=== PATIENT | female | born 1985 | race African-American/Black ===

== ENCOUNTER → 2020-05-05 08:41 | Outpatient (BNVA) | payer OTHER, SELFPAY | PROVIDERS: PCP Physician Assistant Medical; Referring Provider Physician Assistant Medical; Visit Provider Physician Assistant | DX: Z76.89 Persons encountering health services in other specified circumstances (principal) ==

== ENCOUNTER → 2020-05-08 08:11 | Outpatient (BNVA) | payer OTHER, SELFPAY | PROVIDERS: PCP Physician Assistant Medical; Referring Provider Physician Assistant Medical; Visit Provider Surgery | DX: Z76.89 Persons encountering health services in other specified circumstances (principal) ==

== ENCOUNTER → 2020-05-16 09:11 | Outpatient (BNVA) | payer OTHER, SELFPAY | PROVIDERS: PCP Physician Assistant Medical; Visit Provider Dietitian, Registered | DX: Z76.89 Persons encountering health services in other specified circumstances (principal) ==

== ENCOUNTER → 2020-05-19 08:44 | Outpatient (BNVA) | payer OTHER, SELFPAY | PROVIDERS: PCP Physician Assistant Medical; Referring Provider Physician Assistant Medical; Visit Provider Physician Assistant | DX: Z76.89 Persons encountering health services in other specified circumstances (principal) ==

== ENCOUNTER 2020-05-19 16:56 | Outpatient (REF) | payer OTHER, SELFPAY ==
[2020-05-20 12:01] LABS: H Pylori Breath Test NOT DETECTED (NOT DETECTED)
== END 2020-05-19 16:57 | disposition home or self-care (01) ==
LOC: HO.LNP 16:56
PROVIDERS: Visit Provider Physician Assistant
DX: Z01.818 Encounter for other preprocedural examination (principal)
CPT/HCPCS: 83013

== ENCOUNTER → 2020-05-31 07:38 | Outpatient (BNVA) | payer OTHER, SELFPAY | PROVIDERS: PCP Physician Assistant Medical; Visit Provider Surgery | DX: Z76.89 Persons encountering health services in other specified circumstances (principal) ==

== ENCOUNTER 2020-06-01 09:55 | Outpatient (REF) | payer OTHER, SELFPAY ==
--- NOTE | 2020-06-01 | FL_ITS ---
EXAMINATION: XR GI SERIES CLINICAL INFORMATION: Morbid obesity due to excess calories COMPARISON: None TECHNIQUE: Fluoroscopic assessment of the upper GI tract was performed in various upright and supine/prone obliquities utilizing thin and thick high density barium contrast material and effervescent granules. FINDINGS: The esophagus was normal in course, caliber, and contour. There was normal distensibility with no fixed segment of narrowing. No focal mucosal abnormality was identified. No significant esophageal dysmotility was observed. Contrast passed freely across the gastroesophageal junction into the stomach. No significant hiatal hernia. There was normal distensibility of the stomach with no focal abnormality identified. There was prompt gastric emptying into the duodenum which demonstrated a normal appearance. No gastroesophageal reflux was observed. FLUOROSCOPY TIME: 1.1 minute DOSE AREA PRODUCT: 31.306 Gy-cm2 (landis-centimeter squared) FL/FL upper GI series IMPRESSION: Normal upper GI examination.
--- NOTE | 2020-06-01 10:03 | US_ITS ---
EXAMINATION: US COMPLETE ABDOMEN WITH LIVER ELASTOGRAPHY CLINICAL INFORMATION: Morbid obesity due to excess calories COMPARISON: None. TECHNIQUE: Real-time imaging of the abdominal viscera. Noninvasive ultrasound liver fibrosis assessment is performed using Toni ElastPQ point quantification shear wave elastography (pSWE) with a 5 MHz transducer. Multiple elastography samples are obtained. FINDINGS: PANCREAS: Not well seen secondary to bowel gas. ABDOMINAL AORTA: The proximal, middle, and distal aortic segments are normal in caliber. INFERIOR VENA CAVA: Visualized portions are normal. LIVER: The liver demonstrates normal size and Contour with increased echogenicity. No focal lesion or intrahepatic biliary duct dilatation. The right lobe measures 13 cm in length. The left lobe measures 10.1 cm in length. Hepatopedal flow of the main portal vein. Shear wave elastography provides a median stiffness of 1.24 m/s (reference: normal median stiffness is 0.81 - 1.22 m/s). The IQR/median stiffness to assess sampling precision is 0.1 (reference: optimal IQR/median stiffness is under 0.3). GALLBLADDER: Surgically absent. COMMON BILE DUCT: Prominent in caliber measuring 0.9 cm in diameter. RIGHT KIDNEY: Normal. No hydronephrosis. No renal calculi or focal parenchymal lesions. The kidney measures 10.8 cm in maximum dimension. LEFT KIDNEY: Normal. No hydronephrosis. No renal calculi or focal parenchymal lesions. The kidney measures 10.4 cm in maximum dimension. SPLEEN: Normal. The spleen measures 9.9 cm in maximum dimension. FREE FLUID: None. US/US abdomen comp w elastography IMPRESSION: 1. Hepatic steatosis. 2. Elastography: Liver elastography measurements are consistent with a minimal risk for clinically significant liver fibrosis (METAVIR Stage F0-F1).
--- NOTE | 2020-06-01 10:30 | XR_ITS ---
EXAMINATION: XR CHEST CLINICAL INFORMATION: Morbid obesity due to excess calories COMPARISON: None TECHNIQUE: 2 views of the chest were obtained. FINDINGS: The lungs are well expanded. There is no focal consolidation, edema, or effusion. No pneumothorax. The cardiomediastinal silhouette is within normal limits. No acute osseous abnormality. XR/XR chest 2V IMPRESSION: Clear lungs.
--- NOTE | 2020-06-01 11:38 | ECG_ITS ---
Test Reason : MORBID OBESITY Blood Pressure : / mmHG Vent. Rate : 071 BPM Atrial Rate : 071 BPM P-R Int : 142 ms QRS Dur : 074 ms QT Int : 400 ms P-R-T Axes : 011 042 037 degrees QTc Int : 434 ms Normal sinus rhythm Normal ECG No previous ECGs available Referred By: Juan Antonio Gates Electronically Signed By:VERA MONTENEGRO MD
[2020-06-01 12:33] LABS: MANUAL DIFF FLAG NO
[2020-06-01 12:45] LABS: Basophils Percent Auto 0.6 % (0-2); Eosinophils Absolute Auto 0.1 X10*3/uL (0.0-0.4); Eosinophils Percent Auto 1.4 % (0-4); Hematocrit 37.8 % (37-47); Hemoglobin 12.2 g/dl (12.0-16.0); Imm Gran Abs Auto 0.02 X10*3/uL (0.00-0.03); Imm Gran Pct Auto 0.3 % (0.0-0.4); Lymphocytes Absolute Auto 2.1 X10*3/uL (1.2-4.9); Lymphocytes Percent Auto 31.2 % (20-40); Mean Corpuscular HGB Conc 32.3 g/dl (31.0-35.0); Mean Corpuscular Hemoglobin 25.7 pg (27.0-33.0); Mean Corpuscular Volume 79.6 fL (80-98); Mean Platelet Volume 11.8 fL (9.4-12.3); Monocytes Absolute Auto 0.4 X10*3/uL (0.1-1.2); Monocytes Percent Auto 5.9 % (2-11); Neutrophils Percent Auto 60.6 % (45-73); Platelet Count 276 X10*3/uL (160-400); Red Blood Count 4.75 X10*6/uL (4.20-5.50); Red Cell Distribution Width 13.8 % (11.0-16.0); White Blood Count 6.6 X10*3/uL (4.8-10.8)
[2020-06-01 13:04] LABS: Estimated Average Glucose 108 mg/dL; Hemoglobin A1c % 5.4 %
[2020-06-01 13:32] LABS: Alanine Aminotransferase 18 U/L (0-31); Alkaline Phosphatase 64 U/L (39-117); Anion Gap 15 (12-20); Aspartate Amino Transferase 17 U/L (5-31); Bilirubin Total 0.3 mg/dL (0.0-1.0); Blood Urea Nitrogen 11 mg/dL (9-16); Calcium 8.8 mg/dL (8.4-10.2); Carbon Dioxide 25 mmol/L (22-29); Chloride 102 mmol/L (96-108); Cholesterol 151 mg/dL; Estimated Glomerular Filt Rate > 60; Glucose Random 82 mg/dL (60-115); HDL Cholesterol 55 mg/dL; LDL Cholesterol Calculated 86 mg/dl; Potassium 4.4 mmol/l (3.3-5.1); Sodium 138 mmol/L (135-145); Triglycerides 51 mg/dL
[2020-06-01 13:42] LABS: Ferritin 130 ng/mL (10-122); TSH reflex Free T4 1.56 mIU/mL (0.32-4.0)
[2020-06-01 14:06] LABS: Folate 13.9 ng/mL (> or = 4.0); Vitamin B12 1200 pg/mL (200-900)
[2020-06-03 03:47] LABS: Insulin Level Total 6.8 uIU/mL
[2020-06-03 16:07] LABS: Zinc 64 mcg/dL (60-130)
[2020-06-06 12:22] LABS: Vitamin B1 10 nmol/L (8-30)
[2020-06-08 17:47] LABS: Vitamin A 24 mcg/dL (38-98)
== END 2020-06-01 09:56 | disposition home or self-care (01) ==
LOC: HO.US 09:55
PROVIDERS: PCP Physician Assistant Medical; Visit Provider Surgery
DX: Z01.818 Encounter for other preprocedural examination (principal); E66.01 Morbid (severe) obesity due to excess calories; K21.9 Gastro-esophageal reflux disease without esophagitis
CPT/HCPCS: 36415; 71046; 74240; 76705; 76981; 80053; 80061; 82607; 82728; 82746; 83036; 83525; 84425; 84443; 84590; 84630; 85025; 86140; 93005

== ENCOUNTER → 2020-06-13 08:50 | Outpatient (BNVA) | payer OTHER, SELFPAY | PROVIDERS: PCP Physician Assistant Medical; Referring Provider Physician Assistant Medical; Visit Provider Dietitian, Registered | DX: Z76.89 Persons encountering health services in other specified circumstances (principal) ==

== ENCOUNTER → 2020-06-19 08:03 | Outpatient (BNVA) | payer OTHER, SELFPAY | PROVIDERS: PCP Physician Assistant Medical; Referring Provider Physician Assistant Medical; Visit Provider Surgery | DX: Z76.89 Persons encountering health services in other specified circumstances (principal) ==

== ENCOUNTER → 2020-06-27 08:12 | Outpatient (BNVA) | payer OTHER, SELFPAY | PROVIDERS: PCP Physician Assistant Medical; Referring Provider Physician Assistant Medical; Visit Provider Dietitian, Registered | DX: E66.01 Morbid (severe) obesity due to excess calories (principal); Z76.89 Persons encountering health services in other specified circumstances ==

== ENCOUNTER → 2020-07-19 07:50 | Outpatient (BNVA) | payer OTHER, SELFPAY | PROVIDERS: PCP Physician Assistant Medical; Visit Provider Surgery | DX: Z76.89 Persons encountering health services in other specified circumstances (principal) ==

== ENCOUNTER → 2020-08-04 07:24 | Outpatient (BNVA) | payer OTHER, SELFPAY | PROVIDERS: PCP Physician Assistant Medical; Visit Provider Surgery ==

== ENCOUNTER → 2020-08-07 12:25 | Outpatient (BNVA) | payer OTHER, SELFPAY | PROVIDERS: PCP Physician Assistant Medical; Visit Provider Physician Assistant ==

== ENCOUNTER → 2020-08-18 14:10 | Outpatient (BNVA) | payer OTHER, SELFPAY | PROVIDERS: PCP Physician Assistant; Visit Provider Physician Assistant ==

== ENCOUNTER → 2020-08-21 08:21 | Outpatient (BNVA) | payer OTHER, SELFPAY | PROVIDERS: PCP Physician Assistant; Visit Provider Surgery ==

== ENCOUNTER 2020-08-22 06:07 | Outpatient (REF) | payer OTHER, SELFPAY ==
[2020-08-22 07:13] LABS: MANUAL DIFF FLAG NO
[2020-08-22 07:19] LABS: Basophils Percent Auto 0.4 % (0-2); Eosinophils Absolute Auto 0.1 X10*3/uL (0.0-0.4); Eosinophils Percent Auto 1.2 % (0-4); Hematocrit 34.8 % (37-47); Hemoglobin 11.3 g/dl (12.0-16.0); Imm Gran Abs Auto 0.02 X10*3/uL (0.00-0.03); Imm Gran Pct Auto 0.3 % (0.0-0.4); Lymphocytes Percent Auto 29.6 % (20-40); Mean Corpuscular HGB Conc 32.5 g/dl (31.0-35.0); Mean Corpuscular Hemoglobin 25.3 pg (27.0-33.0); Mean Platelet Volume 10.5 fL (9.4-12.3); Monocytes Absolute Auto 0.3 X10*3/uL (0.1-1.2); Neutrophils Absolute Auto 4.3 X10*3/uL (2.0-8.3); Neutrophils Percent Auto 63.5 % (45-73); Platelet Count 306 X10*3/uL (160-400); Red Blood Count 4.46 X10*6/uL (4.20-5.50); Red Cell Distribution Width 14.2 % (11.0-16.0); White Blood Count 6.8 X10*3/uL (4.8-10.8)
[2020-08-22 07:28] LABS: INTERNATIONAL NORM RATIO 1.1 (0.9-1.1); Prothrombin Time 13.1 SEC (10.8-13.0)
[2020-08-22 07:49] LABS: Alanine Aminotransferase 11 U/L (0-31); Albumin Level 3.9 g/dL (3.5-5.0); Alkaline Phosphatase 61 U/L (39-117); Anion Gap 11 (12-20); Aspartate Amino Transferase 11 U/L (5-31); Bilirubin Total 0.4 mg/dL (0.0-1.0); Blood Urea Nitrogen 14 mg/dL (9-16); C Reactive Protein 1.91 mg/dL (< or = 0.50); Calcium 8.7 mg/dL (8.4-10.2); Carbon Dioxide 26 mmol/L (22-29); Chloride 105 mmol/L (96-108); Cholesterol 154 mg/dL; Estimated Glomerular Filt Rate > 60; Glucose Random 102 mg/dL (60-115); HDL Cholesterol 46 mg/dL; LDL Cholesterol Calculated 96 mg/dl; Potassium 4.3 mmol/L (3.3-5.1); Sodium 138 mmol/L (135-145); Total Protein 7.4 g/dL (6.5-8.0); Triglycerides 61 mg/dL
[2020-08-22 07:50] LABS: Estimated Average Glucose 100 mg/dL; Hemoglobin A1c % 5.1 %
[2020-08-22 08:12] LABS: Ferritin 203 ng/mL (10-122); TSH reflex Free T4 2.27 uIU/mL (0.32-4.0); Vitamin D 25-OH Total 27.1 ng/mL (>30)
[2020-08-22 09:18] LABS: Vitamin B12 1186 pg/mL (200-900)
[2020-08-23 10:42] LABS: Calcium (PTHI) 8.9 mg/dL (8.6-10.2); PTHI 28 pg/mL (14-64)
[2020-08-23 17:52] LABS: Insulin Level Total 15.1 uIU/mL
[2020-08-24 23:32] LABS: Zinc 59 mcg/dL (60-130)
[2020-08-26 11:51] LABS: Vitamin B1 <6 nmol/L (8-30)
[2020-08-26 16:37] LABS: Vitamin A 22 mcg/dL (38-98)
== END 2020-08-22 06:08 | disposition home or self-care (01) ==
LOC: HO.LAB 06:07
PROVIDERS: Visit Provider Surgery
DX: E66.01 Morbid (severe) obesity due to excess calories (principal)
CPT/HCPCS: 36415; 80053; 80061; 82306; 82607; 82728; 83036; 83525; 83970; 84425; 84443; 84590; 84630; 85025; 85610; 85730; 86140

== ENCOUNTER 2020-08-31 17:07 | Inpatient (IN) | payer OTHER, SELFPAY ==
[2020-08-25 13:57] VITALS: BMI 43.0
--- NOTE | 2020-08-29 14:20 | P.CONAN_ITS ---
Documented by User: Deidra Willams 08/29/20 14:24 HPI - Anesthesia Eval Consult details Narrative: 35yo F for Gastrectomy Sleeve PMFSH Active Problems Active Problems: All Active Problems (Updated 06/19/20 @ 13:03 by Juan Antonio Gates MD) Preprocedural examination (Acute) Vitamin A deficiency (Acute) Depression (Acute) Morbid obesity (Acute) Past Medical History Medical History Depression Obesity Vitamin A deficiency Family History Family History Mother Vision decreased Hypertension Father Diabetes Brother No problems noted. Sister Hypertension Sister No problems noted. Surgical History Surgical History History of partial hysterectomy Hx of cholecystectomy Morbid obesity Social History Social History Alcohol intake: current Alcohol intake frequency: holidays/special occasions only Smoking Status: Never smoker Use of substances other than those prescribed or required for medical reasons: No Meds Allergies Allergy/AdvReac Type Severity Reaction Status Date / Time No Known Allergies Allergy Verified 08/25/20 13:55 Home Medications Medication Instructions Recorded Confirmed Last Taken Type bupropion HCl 300 mg 24 hr tablet, mg PO 05/08/20 08/21/20 Unknown History extended release cholecalciferol (vitamin D3) 1,250 PO 05/08/20 08/21/20 Unknown History mcg (50,000 unit) capsule nitrofurantoin monohyd/m-cryst 1 cap PO BID 08/25/20 08/25/20 08/25/20 08:00 History Exam Exam Date and Time: August 29, 2020 1420 Height,Weight and Vital Signs: Height 5 ft 4 in Weight 113.852 kg Pertinent Lab Results Pertinent Lab Results: Laboratory Tests 08/22/20 06:39 Blood Type O Positive Antibody Screen NEGATIVE Laboratory Tests 08/22/20 08/22/20 08/22/20 06:18 Unknown Unknown WBC 6.8 Hgb 11.3 L Hct 34.8 L Plt Count 306 PT 13.1 H INR 1.1 APTT 41.0 H Sodium 138 Potassium 4.3 Chloride 105 Carbon Dioxide 26 Anion Gap 11 L BUN 14 Creatinine 0.84 Estimated GFR > 60 Hemoglobin A1c % Total Bilirubin 0.4 AST 11 ALT 11 Alkaline Phosphatase 61 C-Reactive Protein 1.91 H Total Protein 7.4 Albumin 3.9 08/22/20 Unknown WBC Hgb Hct Plt Count PT INR APTT Sodium Potassium Chloride Carbon Dioxide Anion Gap BUN Creatinine Estimated GFR Hemoglobin A1c % 5.1 Total Bilirubin AST ALT Alkaline Phosphatase C-Reactive Protein Total Protein Albumin Narrative Narrative: EKG 05/2020 Normal sinus rhythm Normal ECG No previous ECGs available Assessment and Plan Assessment Anesthesia Assessment: Chart Reviewed Documented by User: Cristina Segovia 08/31/20 14:48 [facility] Past Medical History Medical History Depression Obesity Vitamin A deficiency Family History Family History Mother Vision decreased Hypertension Father Diabetes Brother No problems noted. Sister Hypertension Sister No problems noted. Surgical History Surgical History History of partial hysterectomy Hx of cholecystectomy Morbid obesity Social History Social History Alcohol intake: current Alcohol intake frequency: holidays/special occasions only Smoking Status: Never smoker Use of substances other than those prescribed or required for medical reasons: No Meds Allergies Allergy/AdvReac Type Severity Reaction Status Date / Time No Known Allergies Allergy Verified 08/25/20 13:55 Home Medications Medication Instructions Recorded Confirmed Last Taken Type bupropion HCl 300 mg 24 hr tablet, mg PO 05/08/20 08/21/20 Unknown History extended release cholecalciferol (vitamin D3) 1,250 PO 05/08/20 08/21/20 Unknown History mcg (50,000 unit) capsule nitrofurantoin monohyd/m-cryst 1 cap PO BID 08/25/20 08/25/20 08/25/20 08:00 History Exam Airway Mallampati Class: II TM Dist: >3cm Neck ROM: Full Loose/Missing/Broken Teeth: No Heart: RRR Lungs: CTA Assessment and Plan Assessment Anesthesia Assessment: Anesthesia Plan Discussed and Chart Reviewed Final Anesthetic Review NPO: Yes ASA Class: II Final Preanesthetic Review: Meds/Allgs Chart Reviewed, Consent Obtained/Reviewed and Anes Risks/Benef Reviewed Patient Risk: Intermediate Procedure Risk: Intermediate Anesthetic Plan Anesthetic Plan: GA Disposition: Standard PACU
--- NOTE | 2020-08-30 21:04 | MHC.SHP ---
Pre-Procedural Eval Section A The patient is an INPATIENT: Yes The History & Physical has been completed within 30 days and I have reviewed it.: Yes Section B Chief Complaint: obesity Details of Present Illness: obesity Relevant Family History (Specify if Yes): No Relevant Social History: None Present Medications: see Short Stay Collaborative assessment Medical History: No relevant PMH History of Previous Operations: No relevant previous surgery Allergies: Allergies Allergy/AdvReac Type Severity Reaction Status Date / Time No Known Allergies Allergy Verified 08/25/20 13:55 Review of Systems Sugical H&P ROS: Negative: Constitution, Cardiovascular, Respiratory, Neurological, Psychiatric, Hem-Onc, Allergic/Immunologic, Gastrointestinal, Genitourinary, Musculoskeletal, Integumentary, Endocrine and Eyes/Ears/Nose/Throat Exam Surgical H&P Exam: Normal: HEENT, Normal: Heart, Normal: Lungs, Normal: Extremities, Normal: Abdomen, Normal: Skin and Normal: Neurological Plan Diagnosis/Plan: Unchanged I have reviewed the history and physical and performed a pertinent physical examination on my patient. No changes have occurred unless specified.
[2020-08-31] VITALS (16 sets, daily range): BP systolic 125–159; BP diastolic 73–99; PULSE 72–88; RESP 12–20; TEMP 36–36.7; O2SAT 93–100
[2020-08-31 13:17] LABS: UPreg QC Valid YES; Urine Pregnancy NEGATIVE (NEGATIVE)
[2020-08-31 13:33] LABS: COVID-19 Test Negative (Negative)
--- NOTE | 2020-08-31 14:05 | PC.NURSE ---
uaamita to obtain an iv. heated bilateral arms and attempted twice. none seen visually. aneshtesia aware. to try in or.
--- NOTE | 2020-08-31 17:14 | P.DS_ITS ---
DS: Providers Provider Date of Service: 09/04/20 Date of admission: 08/31/20 17:07 Primary care physician: Unknown Physician DS: Medications Discharge Medications Home Medications: Home Medications Medication Instructions Recorded Confirmed bupropion HCl 300 mg 24 hr tablet, mg PO 05/08/20 08/21/20 extended release cholecalciferol (vitamin D3) 1,250 PO 05/08/20 08/21/20 mcg (50,000 unit) capsule nitrofurantoin monohyd/m-cryst 1 cap PO BID 08/25/20 08/25/20 Previous Rx's Medication Instructions Recorded vitamin A palmitate 15,000 unit 10,000 unit PO .once a day #30 tab 06/19/20 tablet ondansetron HCl 4 mg tablet 4 mg PO DAILY #14 tab 08/21/20 pantoprazole 40 mg tablet,delayed 40 mg PO DAILY #30 tab 08/21/20 release polyethylene glycol 3350 17 gram 17 g PO DAILY #14 ea 08/21/20 oral powder packet sucralfate 100 mg/mL oral 10 ml PO BID #420 ml 08/21/20 suspension DS: Summary Time Spent with Patient Time attestation: ADMITTING DIAGNOSIS: morbid obesity, depression DISCHARGE DIAGNOSIS: same, s/p laparoscopic sleeve gastrectomy PAST SURGICAL HISTORY: hysterectomy, l;ap cholecystectomy PROCEDURE: upper endoscopy, laparoscopic sleeve gastrectomy DISCHARGE SUMMARY: History of Present Illness: The patient is a 35 year-old woman with a BMI of 46 kg/m2 and associated co- morbidities as described above. The patient had extensive work-up,lost 31.6 lbs preoperatively and was electively scheduled for laparoscopic, possible open sleeve gastrectomy and gastropexy. Risks and complications of the surgery were discussed with the patient in advance, particularly the possibility of , pulmonary embolism, anastomotic leak, bleeding, bowel injury, GERD, cardiac, renal or pulmonary complications. The patient understood all the risks and was in agreement with the surgical plan. Hospital Course: The patient underwent an uneventful laparoscopic sleeve gastrectomy with gastropexy the day of admission. Postoperatively, the patient was transferred to the surgical floor. The patient was on IV Acetaminophen and IV dilaudid for pain control. Patient was started on bariatric phase 1 diet POD #0. On postoperative day one, the patient was feeling well without nausea, vomiting, fevers, or tachycardia. The patient had some mild incisional pain. The abdomen was soft. On the morning of postoperative day one, the patient was continued on 1 ounce of water or ice every half hour. During the first day, the patient did fairly well, having some incisional pain, but able to ambulate adequately and to tolerate liquids well. Since the patient is doing well, we decided that the patient was ready to be discharged. The patient was given instructions to follow-up with me next week and to call my office for any fever over 101, persistent abdominal pain, nausea, vomiting, GERD, symptoms of DVT such as calf tenderness, or leg swelling, or pulmonary embolism such as chest pain or shortness of breath. The patient was also instructed to drink 40-60 ounces of liquids per day using the 1-ounce cups. The patient was given prescription for Tylenol for pain, Zofran prn for nausea, and pantoprazole and carafate. The patient was encouraged to ambulate and use the incentive spirometer. The patient was allowed to shower, but no baths, and encouraged to stay active at home. All of these instructions were given to the patient personally. All questions were answered and the patient understood all instructions, the instructions were also given to the patient in print. Total time spent providing and/or coordinating discharge services: Discharge coordination time: Less than 30 minutes Physical Exam Vital Signs: Vital Signs: Last Vital Signs Temp 87.3 F L 08/31/20 16:50 Pulse 84 08/31/20 17:05 Resp 16 08/31/20 17:05 BP 155/89 H 08/31/20 17:05 Pulse Ox 100 08/31/20 17:05 Body Mass Index 43.0 DS: Data Data Completed and Pending Pending studies at discharge: Pending at discharge 08/31/20 16:20 Surgical [PTH] Routine Labs on day of discharge: Laboratory Results - last 24 hr 08/31/20 08/31/20 13:00 13:00 Urine Test NEGATIVE COVID-19 (ADONAY) Negative COVID-19 Clin Com See Note Discharge Plan Discharge Anticipated Discharge Date/Time: 09/01/20 11:12 Patient Disposition: Home, Self-Care Referrals: Physician,Unknown [Primary Care Provider] - Discharge Medications: Continued nitrofurantoin monohyd/m-cryst 100 mg capsule 1 cap PO BID RF: 0 bupropion HCl 300 mg tablet extended release 24 hr PO RF: 0 pantoprazole 40 mg tablet,delayed release (DR/EC) 40 mg PO DAILY Qty: 30 RF: 2 sucralfate 100 mg/mL suspension 10 ml PO BID Qty: 420 RF: 2 ondansetron HCl [Zofran] 4 mg tablet 4 mg PO DAILY Qty: 14 RF: 0 Discontinued cholecalciferol (vitamin D3) 1,250 mcg (50,000 unit) capsule PO RF: 0 vitamin A palmitate 15,000 unit tablet 10,000 unit PO .once a day Qty: 30 RF: 2 polyethylene glycol 3350 [Miralax] 17 gram powder in packet 17 g PO DAILY Qty: 14 RF: 0 Discharge Orders: Discharge Order (Routine); Ordered 09/01/20 Ordered By: Juan Antonio Gates Diet: other Activity on Discharge: No heavy lifting Stand Alone Forms: Patient Portal Discharge page Activity Restrictions/Additional Instructions: No tub baths, sex or returning to work until discussed at first post op appointment. No exercise, alcohol, tobacco or illegal drug use. Continue to use incentive spirometer hourly while awake. Walk in home for 5- 10 minutes every 2 hours during the first week. Continue phase 1 diet today and start phase 2 diet tomorrow morning. Follow all instructions in the bariatric handbook and call with any questions. Care Plan Goals: weight loss Health Concerns: morbid obesity Plan of Treatment: see discharge instructions Discharge Date/Time: 09/01/20 14:15
[2020-08-31] MEDS: fentaNYL citrate/PF 100 MCG/2 ML VIAL 25 MCG IVPUSH ×4 (17:40→18:20)
[2020-08-31 18:18] LABS: Hematocrit 34.6 % (37-47); Hemoglobin 11.1 g/dl (12.0-16.0)
[2020-08-31 18:46] LABS: Anion Gap 14 (12-20); Blood Urea Nitrogen 8 mg/dL (9-16); Calcium 8.4 mg/dL (8.4-10.2); Carbon Dioxide 24 mmol/L (22-29); Chloride 101 mmol/L (96-108); Creatinine Clr Calc Pharmacy 121.4; Estimated Glomerular Filt Rate > 60; Glucose Random 126 mg/dL (60-115); Sodium 135 mmol/L (135-145)
--- NOTE | 2020-08-31 18:54 | PM.OP ---
Brief Operative Note Date of Service: 08/31/20 Pre-op diagnosis: Morbid obesity with comorbidities (see below) Post-op diagnosis: other (& congenital abdominal adhesions) Procedure: INITIAL PATIENT BMI ON PRESENTATION AT OUR OFFICE: 47 kg/m2 LAST BMI BEFORE SURGERY: 41.9 kg/m2 COMORBIDITIES:liver steatosis, depression The patient participated in an intensive weekly lifestyle intervention and exercise program during which the patient has lost between the initial office visit and the last preoperative visit 31.6 lbs, or 11.16% of initial actual body weight. The patient met the BMI-criteria for bariatric surgery based on the BMI on initial presentation. The patient should not be penalized for achieving such weight loss because it is not sustainable long-term without surgical intervention and it was achieved in preparation for bariatric surgery under my direction and based on my published research ([email or web address] and [email or web address]) that a 10% preoperative weight loss improves long-term weight loss after surgery and reduces perioperative complications. Insurance carriers such as [facility] have endorsed my recommendations and have included in their policies criteria to include a 10% preoperative weight loss requirement. PROCEDURE: Esophago-gastroscopy, laparoscopic lysis of adhesions, laparoscopic sleeve gastrectomy and laparoscopic gastropexy INDICATIONS: This is a 35 year-old female who was electively scheduled for laparoscopic, possibly open sleeve gastrectomy. The risks and complications of the procedure were discussed with the patient in advance, particularly the possibility of ; pulmonary embolism; staple line leak; bleeding; GERD; cardiac, pulmonary, or renal complications; as well as long-term problems such as insufficient weight loss, vitamin deficiency, strictures, or ulcers. The patient understood all the risks, and was in agreement to proceed with surgery. DESCRIPTION OF PROCEDURE: After informed consent was obtained from the patient, the patient was given preoperative antibiotics, and was transferred to the operating room. After successful induction of general anesthesia, pneumatic compressive devices were placed on both lower extremities. An upper endoscopy was performed next. The oropharynx and esophagus appeared to be within normal limits. There was no diaphragmatic hernia present consistent with the findings of the preoperative upper GI. The stomach was entered. Then after all fluid and air were suctioned and the stomach was fully decompressed, the scope was withdrawn and secured in the mid esophagus. The patient was then prepped and draped in the usual sterile manner, and abdominal access was established at the right upper quadrant with the Garrett technique. A 12 mm blunt port was inserted, and the abdomen was insufflated with CO2 to a pressure of 15 mmHg. Under direct visualization, additional ports were placed, specifically two 5 mm Versi-step ports to the left upper quadrant, and a 5 mm Versi-Step port to the right upper quadrant. 1% lidocained plan was used to infiltrate all port sites as well as all fascia defects. Using the EndoClose suture passer device, we placed a #1 Polysorb tie across the falciform ligament in order to retract it up against the abdominal wall and prevent injury of the ligament with our instruments during the procedure. Following that, the patient was placed in a steep reverse Trendelenburg position. An additional 5 mm port was placed to the right flank for the Mediflex retractor that was used to retract the left lobe of the liver. The gastro-esophageal fat pad was opened with the ultrasonic device (Thunderbeat, Olympus) and the anterior esophagus and hiatus were exposed. The angle of His was opened with the ultrasonic device the fundus of the stomach from any diaphragmatic and splenic attachments. I then opened the gastrocolic ligament between the transverse colon and the greater curvature of the stomach with the ultrasonic device to enter the lesser sac and facilitate the ligation of the short gastric vessels. I started at a mid-point along the greater curvature and using the Thunderbeat, all short gastric vessels were divided all the way to the angle of His until the left maribell was completely dissected at its entirety. I then divided the gastro-colic ligament distally to a distance of about 3-4 cm proximal to the esophagus. There were extensive congenital adhesions between the pancreas and posterior gastric wall. Those were lysed completely with the ultrasonic device. Adhesiolysis took approximately 45 min to complete. The stomach was then divided transversely with three Endo DEEPALI-45 and four DEEPALI-60 articulating purple loads using the Wrapp stapler and loads. Every effort was made that the gastric sleeve had a tubular shape and an even caliber throughout. Once the sleeve resection was completed, the staple line of the gastric sleeve was reinforced with Hemoclips. The resected stomach was retrieved without difficulty from the Garrett port. A gastropexy was then performed in order to prevent postoperative GERD and partial gastric volvulus. Several interrupted 2.0 Surgidac sutures were placed between the sleeve's staple line and the previously divided greater omentum and gastro-colic ligament using the Endo-Stitch device. An upper endoscopy was performed. There was no narrowing at the GE junction. The scope was easily advanced all the way to the pylorus which was clearly visualized. There was no narrowing anywhere and the sleeve's caliber was even throughout. The sleeve's staple line was inspected and there was no evidence of ischemia, bleeding or dehiscence. At that point the gastroscope was withdrawn from the patient?s mouth while we were decompressing the bowel and the stomach from any remaining air. I looked into the lesser sac to see how the sleeve was situating and it was situating well. There was no bleeding from the staple line, spleen, or short gastric vessels. The Mediflex retractor was removed, and the undersurface of the liver was inspected and there was no bleeding. The patient was placed in supine position. I closed the fascial defect of the 12 mm port site with a figure of eight #1 Polysorb suture. Then 100 cc 0.25 % Marcaine plain with 10 mg of Dexamethasone were used to infiltrate the fascial closure as well as all skin incisions. At this point, the abdomen was deflated, all ports were removed under direct vision, and no bleeding was noted from any of the port sites. The skin incisions were irrigated with saline and were closed with 4-0 absorbable monofilament sutures. Steri-Strips and OpSites were used to cover all incisions. The patient was extubated and was transferred in stable condition to the recovery room for further care. I was present and performed all vázquez parts of the procedure. Ms. Willisson was the certified first assistant. There were no residents to assist with this case. Dion Gates MD, PhD, FACS Surgeon: Juan Antonio Gates MD Anesthesia: GETA, local and other (TAP block) Automatic Beading Lathe Operator: Jessica Zendejas Estimated blood loss (mL): 10 IV fluids (mL): 3,000 Urine output (mL): 0 (No Almeida to record) Pathology: other (Stomach) Condition: stable
--- NOTE | 2020-08-31 19:00 | PM.PNGS ---
Subjective Subjective Date of Service: 09/01/20 Interval history: Patient had incisional pain requiring IV Tylenol and IV Dilaudid. Was able to ambulate and use the incentive spirometer. Physical Exam Vital Signs: Vital Signs: Last Vital Signs Temp 98.1 F 08/31/20 17:25 Pulse 78 08/31/20 18:25 Resp 16 08/31/20 18:25 BP 136/91 H 08/31/20 18:25 Pulse Ox 100 08/31/20 18:25 Body Mass Index 43.0 GI: Inspection: Yes normal to inspection, Yes incision (clean, dry and intact) and Yes obesity Extrem: Right lower extremity: normal to inspection (no calf tenderness) Left lower extremity: normal to inspection (no calf tenderness) Progress Note: A&P Assessment and plan (1) Morbid obesity: Status: Acute (2) Depression: Status: Acute (3) Steatosis, liver: Status: Acute (4) Congenital intra-abdominal adhesions: Status: Acute (5) S/P laparoscopic sleeve gastrectomy: Status: Acute Assessment and Plan: 35 year old jose manuel was admitted 08/31/2020 with morbid obesity and comorbidities. Problem 1: s/p laparoscopic sleeve gastrectomy, gastropexy and lysis of adhesions Status: Doing well Plan: Check am labs, If OK, will continue phase 1 bariatric diet and discharge later today. Fall Risk Details Current Medications: Current Medications Generic Name Dose Route Start Last Admin Trade Name Freq PRN Reason Stop Dose Admin Fentanyl 50 mcg 08/31/20 14:49 Fentanyl Citrate/Pf 100 Mcg/2 Ml Vial IVPUSH Q5M PRN Pain, Severe (Pain Scale 7-10) Hydromorphone HCl 0.25 mg 08/31/20 14:49 Hydromorphone Hcl 0.5 Mg/0.5 Ml Syringe IVPUSH Q5M PRN Pain, Severe (Pain Scale 7-10) Lactated Ringer's 1,000 mls @ 100 mls/hr 08/31/20 13:15 Lr IVCONT .Q10H RAFIA Promethazine HCl 6.25 mg/ 50.25 mls @ 201 mls/hr 08/31/20 14:49 Sodium Chloride IV ONCE PRN Nausea and Vomiting Ondansetron HCl 4 mg 08/31/20 14:49 Ondansetron Hcl 4 Mg/2 Ml Vial IVPUSH ONCE PRN Nausea and Vomiting Time Spent With Patient Time: Total time spent is greater than 50% in coordination of care (as documented) at patient's floor/unit and/or counseling patient: Time with patient: less than 15 minutes
[2020-08-31] MEDS: Lactated Ringers 1,000 ML 125 ML IVCONT (19:39)
[2020-08-31] MEDS: ceFAZolin Sodium/Dextrose,Iso 2 GM/50 ML PIGGYBACK IV (20:54)
[2020-08-31] MEDS: Famotidine/PF 20 MG/2 ML VIAL IVPUSH (20:54)
[2020-08-31] MEDS: ondansetron HCL 4 MG/2 ML VIAL IVPUSH (20:54)
[2020-08-31] MEDS: Nitrofurantoin Monohyd/M-Cryst 100 MG CAPSULE PO (20:55)
[2020-08-31] MEDS: 0.9 % Sodium Chloride Flush 3 ML SYRINGE IVFLUSH (20:55)
[2020-09-01] VITALS: BP 134/87; PULSE 72; RESP 20; TEMP 36.6; O2SAT 99
[2020-09-01] MEDS: Metoclopramide HCl 10 MG/2 ML VIAL IVPUSH (00:39)
--- NOTE | 2020-09-01 00:48 | PC.NURSE ---
pt vomited a small amout at 0035, IV reglan given at 0039 with good effect.
[2020-09-01] MEDS: Lactated Ringers 1,000 ML 125 ML IVCONT ×2 (03:36→11:43)
[2020-09-01] MEDS: ondansetron HCL 4 MG/2 ML VIAL IVPUSH (03:36)
[2020-09-01 04:00] VITALS: BP 137/85; PULSE 77; RESP 20; TEMP 36.3; O2SAT 98
[2020-09-01 04:56] LABS: Eosinophils Percent Auto 0.2 % (0-4); Hematocrit 33.3 % (37-47); Imm Gran Abs Auto 0.01 X10*3/uL (0.00-0.03); Imm Gran Pct Auto 0.2 % (0.0-0.4); Lymphocytes Absolute Auto 0.6 X10*3/uL (1.2-4.9); Lymphocytes Percent Auto 10.7 % (20-40); MANUAL DIFF FLAG SCAN; Mean Corpuscular Hemoglobin 25.6 pg (27.0-33.0); Mean Corpuscular Volume 77.6 fL (80-98); Mean Platelet Volume 11.6 fL (9.4-12.3); Monocytes Absolute Auto 0.1 X10*3/uL (0.1-1.2); Monocytes Percent Auto 1.2 % (2-11); Neutrophils Percent Auto 87.7 % (45-73); Platelet Count 239 X10*3/uL (160-400); Red Blood Count 4.29 X10*6/uL (4.20-5.50); Red Cell Distribution Width 14.4 % (11.0-16.0); SCAN SMEAR FLAG 1; White Blood Count 5.7 X10*3/uL (4.8-10.8)
[2020-09-01 05:04] LABS: SLIDE REVIEW VERIFIED
[2020-09-01 07:19] LABS: Anion Gap 14 (12-20); Blood Urea Nitrogen 7 mg/dL (9-16); Calcium 8.2 mg/dL (8.4-10.2); Carbon Dioxide 22 mmol/L (22-29); Chloride 104 mmol/L (96-108); Creatinine Clr Calc Pharmacy 134.9; Estimated Glomerular Filt Rate > 60; Glucose Random 116 mg/dL (60-115); Sodium 136 mmol/L (135-145)
[2020-09-01 08:00] VITALS: BP 146/82; PULSE 83; RESP 18; TEMP 36.8; O2SAT 100
--- NOTE | 2020-09-01 08:59 | HO.POSTANES ---
Post Anesthesia Evaluation Post Anesthesia Evaluation Vital Signs: Vital Signs Temp Pulse Resp BP Pulse Ox 09/01/20 08:00 98.3 F 83 18 146/82 H 100 09/01/20 04:00 97.3 F 77 20 137/85 98 09/01/20 00:00 97.8 F 72 20 134/87 99 Anesthesia: General Endotracheal-GETA Mental Status: Awake Pain Control: Satisfactory Nausea/Vomiting: None (Nausea and vomiting yesterday-resolved) Hydration: Adequate Anesthesia-Related Issues: No Anes. Related Issues
--- NOTE | 2020-09-01 09:31 | MHC.CM.PN ---
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 PT REPORTS SHE CANNOT REMEMBER HER PCP FROM [facility] IN [place] AND CM VERIFIED CHEN DOMINGUEZ, PT VERIFIES [facility] IN [place]. PT DOES REPORT SHE WOULD LIKE ASSISTANCE WITH COMPLETING A HEALTH CARE PROXY, CM WILL COMPLETE WITH PT PRIOR TO D/C.
[2020-09-01] MEDS: Famotidine/PF 20 MG/2 ML VIAL IVPUSH (09:37)
[2020-09-01] MEDS: Nitrofurantoin Monohyd/M-Cryst 100 MG CAPSULE PO (09:37)
--- NOTE | 2020-09-01 10:02 | MHC.CM.PN ---
HCP COMPLETED WITH PT, PT RECEIVED EDUCATION, THE ORIGINAL AND THREE COPIES, COPY UPLOADED TO [facility] AND PLACED IN CHART. HCP: LAUREANO APPIAH () [phone] ALTERNATE: ELIAZAR MEDEL (SISTER) [phone]
--- NOTE | 2020-09-01 10:05 | MHC.CM.PN ---
DISCHARGE HOME TODAY SELF-CARE, TO TRANSPORT AND FOLLOW-UP IN SURGEONS OFFICE.
[2020-09-01 11:31] VITALS: BP 141/82; PULSE 80; RESP 18; TEMP 36.9; O2SAT 98
== END 2020-09-01 14:15 | disposition home or self-care (01) | DRG 403 ==
LOC: HO.SSSA 17:13 → HO.S3 17:26
PROVIDERS: Physician Assistant; Admitting Provider Surgery; Visit Provider Surgery
PROC: 0DB64Z3 Excision of Stomach, Percutaneous Endoscopic Approach, Vertical (ICD-10-PCS; CPT 43845; principal; 2020-08-31 15:00)
DX: E66.01 Morbid (severe) obesity due to excess calories (principal); K76.0 Fatty (change of) liver, not elsewhere classified; F32.9 Major depressive disorder, single episode, unspecified; K66.0 Peritoneal adhesions (postprocedural) (postinfection); Z68.41 Body mass index [BMI] 40.0-44.9, adult; Z20.822 Contact with and (suspected) exposure to COVID-19; Z79.899 Other long term (current) drug therapy
CPT/HCPCS: 43775; 43659; 36415; 80048; 81025; 85014; 85018; 85025; 86850; 86900; 86901; 87635; 88307; 88342; 99024; A4649; J0131; J0690; J1100; J1170; J2250; J2370; J2405; J2765; J3010

== ENCOUNTER → 2020-09-06 11:35 | Outpatient (BNVA) | payer OTHER, SELFPAY | PROVIDERS: Visit Provider Surgery ==

== ENCOUNTER → 2020-10-04 08:10 | Outpatient (BNVA) | payer OTHER, SELFPAY | PROVIDERS: Visit Provider Surgery ==

== ENCOUNTER → 2020-11-01 08:22 | Outpatient (BNVA) | payer OTHER, SELFPAY | PROVIDERS: Visit Provider Surgery ==

== ENCOUNTER → 2020-12-04 08:13 | Outpatient (BNVA) | payer OTHER, SELFPAY | PROVIDERS: Visit Provider Surgery ==

== ENCOUNTER → 2020-12-29 06:45 | Outpatient (BNVA) | payer OTHER, SELFPAY | PROVIDERS: Visit Provider Surgery ==

== ENCOUNTER 2024-06-01 12:45 | Outpatient (AMB) | payer OTHER, SELFPAY ==
--- NOTE | 2024-06-01 12:38 | A.OFFVIS_ITS ---
VS Expanded 06/01/24 12:39 Height 5 ft 4.5 in Weight 160 lb BMI 27.0 Intake Visit Reasons: TV PO LSG 08/31/2020 Allergies No Known Allergies Allergy (Verified 02/27/22 09:03) Medication List - Last Reconciled 06/01/24 by CHEN Ceja semaglutide (weight loss) (Wegovy) 2.4 mg subcut QWEEK HPI Comments Details: This?is a?39?yo female who is s/p LSG 08/31/2020. Presents for 3 year 9 month post op visit. Weight loss of 54lbs since last OV 2 years ago.? No complaints of nausea, emesis, abdominal pain or reflux, or constipation. Has been on Wegovy for a few months, doing well on it. 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 This has been occurring for over a year. Excess skin gets in the way of movement, particularly walking. It is difficult for her to find clothing that fits well due to the volume of the excess skin not fitting in sleeves but not fitting the rest of her body well. Has bought compressive sleeves but has not found them very helpful. The excess skin hanging causes discomfort due to its heaviness. [facility] Medical History (Updated 06/01/24 @ 12:53 by CHEN Ceja) Steatosis, liver Obesity Vitamin A deficiency Preprocedural examination Depression Surgical History (Updated 09/06/20 @ 11:49 by Wilver Walker [facility]) History of sleeve gastrectomy Morbid obesity History of partial hysterectomy Hx of cholecystectomy Family History Mother Vision decreased Hypertension Father Diabetes Brother No problems noted. Sister Hypertension Sister No problems noted. Social History Are you a primary behavioral health care manager to a significant other at home: Yes Do you presently have visiting nurse or other home services: No Alcohol intake: current Alcohol intake frequency: holidays/special occasions only service: No Current occupational status: employed Telehealth Telehealth Telehealth Platform: Telephone Location of provider rendering services: other Location of patient: address on file Patient Identification confirmed using: Name, : Yes Telehealth method: voice only Patient verbally consented to treatment: Yes Patient verbally consented to billing insurance company: Yes Patient informed of any privacy concerns related to visit: Yes Minutes spent on Phone/Video with Pt.: 16 Assessment & Plan Assessment & Plan (1) S/P laparoscopic sleeve gastrectomy: Code(s): Z98.84 - Bariatric surgery status Category: Surgical (2) Overweight: Code(s): E66.3 - Overweight Category: Medical Plan Goal protein intake 65g per day, discussed incorporating one shake or bar per day to help meet protein goal each day. Labs ordered. Pt is interested in brachioplasty, has not had success with managing excess skin of upper arms with conservative treatment. RTC 6 weeks for in person visit, physical exam and monitoring of excess skin of upper arms. I spent a total of 30 minutes reviewing/updating records, examining the patient and counseling the patient on weight management as detailed above. Orders: Orders Insulin Today Z98.84 - Bariatric surgery status Hemoglobin A1c Today Z98.84 - Bariatric surgery status Lipid Panel Today Z98.84 - Bariatric surgery status Vitamin B12 and Folate Today Z98.84 - Bariatric surgery status Zinc Today Z98.84 - Bariatric surgery status Vitamin B1 Today Z98.84 - Bariatric surgery status TSH reflex Free T4 Today Z98.84 - Bariatric surgery status Ferritin Today Z98.84 - Bariatric surgery status Vitamin D 25-OH Total Today Z98.84 - Bariatric surgery status Complete Blood Count Auto Diff Today Z98.84 - Bariatric surgery status IRON PROFILE Today Z98.84 - Bariatric surgery status Comprehensive Met. Panel Today Z98.84 - Bariatric surgery status C Reactive Protein Today Z98.84 - Bariatric surgery status Vitamin A Today Z98.84 - Bariatric surgery status
[2024-06-01 12:39] VITALS: BMI 27.0
--- OUTSIDE RECORDS SUMMARY | 2024-06-04 13:29 | XMS_ITS ---
Author Organization [facility] Address [address] [place] [address] Care Team Providers Care Lie Detector Operator Name Role Phone EDGAR MIGUEL Unavailable [phone] MARIO MCELROY Unavailable [phone] ALLERGIES No Known Allergies REASON FOR VISIT pt here for urgent visit on cough for 1 week, tested negative twice for covid. complains of heaviness in chest MEDICATIONS Medication SIG (Take, Route, Frequency, Duration) Notes Start Date End Date Status Azithromycin 250 MG 2 tablets on day # 1 , then 1 tab orally for 4 days Orally daily for 5 days 05/11/2024 Active Albuterol Sulfate HFA 108 (90 Base) MCG/ACT 2 puff Inhalation every 4 hrs as needed for 30 days 05/11/2024 Active Benzonatate 200 MG 1 capsule as needed Orally Three times a day for 10 days 05/11/2024 Active Diflucan 150 MG 1 tablet Orally once for 1 days 05/11/2024 Active SUMAtriptan Succinate 100 MG 1 tablet Orally Daily for 30 days 11/11/2023 Not-Taking Wegovy 2.4 MG/0.75ML inject 2.4mg Subcutaneous once weekly for 30 days 06/23/2023 Active SOCIAL HISTORY Tobacco Use: Social History Observation Description Date Details (start date - stop date) Never Smoker NA - NA Sex Assigned At : Social History Observation Description Sex Assigned At Unknown Tobacco Use/Smoking Question Answer Notes Are you a nonsmoker VITAL SIGNS Heart Rate 75 /min 05/11/2024 Blood pressure systolic 136 mm Hg 05/11/20 24 Blood pressure diastolic 78 mm Hg 024 Weight 169.4 lbs 05/11/2024 BMI 28.19 kg/m2 05/11/2024 Height 65 in 05/11/2024 Oximetry 99 % 05/11/2024 Encounters Encounter Location Date Provider Diagnosis [facility] [address] [place] [address] 05/11/2024 MARIO MCELROY Acute bronchitis, unspecified J20.9 and Cough, unspecified R05.9 ASSESSMENTS Encounter Date Diagnosis Assessment Notes Treatment Notes Treatment Clinical Notes 05/11/2024 Acute bronchitis, unspecified (ICD-10 - J20.9) 05/11/2024 Cough, unspecified (ICD-10 - R05.9) PLAN OF TREATMENT Medication Medication Name Sig Start Date Stop Date Notes Azithromycin 250 MG 2 tablets on day # 1 , then 1 tab orally for 4 days Orally daily for 5 days 05/11/2024 Albuterol Sulfate HFA 108 (9 0 Base) MCG/ACT 2 puff Inhalation every 4 hrs as needed for 30 days 05/11/2024 Benzonatate 200 MG 1 capsule as needed Orally Three times a day for 10 days 05/11/2024 Diflucan 150 MG 1 tablet Orally once for 1 days 05/11/2024 Next Appt Details Provider Name:ROSANA JAVIER , 06/16/2024 10:15:00 AM, [address] [place] [address], [facility] [address], [address], Progress Notes * Daphney APPIAHDOB:1985 (39 yo F)Acc No.[id number]:05/11/2024 Progress Notes Patient:??Daphney APPIAH Provider:??MARIO MCELROY PA-C :1985?Age:39 Y?Sex:Fe male Date:05/11/2024 Address:[address] [place], [place] [id number] Subjective: * Chief Complaints: * ?1. Pt here for urgent visit on cough for 1 week, tested negative twice for covid. complains of heaviness in chest. * HPI: ?Constitutional:? Daphney is a pleasant 39-year-old female with a past medical history of previous gastric bypass surgery who presents today for an urgent visit secondary to persistent cough. Patient reports that she was seen about 9 days ago at an urgent care center, with symptoms of chest heaviness, chest tightness, and cough with green sputum production. Patient was tested for COVID and flu which was negative, and sent home. She proceeded to be seen again on Friday, with a repeat COVID test which was negative. Patient reports that she got a work note. She reports the cough has persisted, and continues to have green sputum production. She reports bilateral ear discomfort, but no pain. She reports that symptoms began as a sore throat, which is now gone. She denies any fever or chills. There is been no nausea, vomiting, diarrhea. Patient reports that she had a positive sick contact with her niece being ill with similar symptoms. Patient denies any body aches. She has tried Tylenol, [id number] cough medicine and Mucinex with no relief of her symptomatology. * ROS:?Constitutional: Patient denies any excessive fatigue with exercise, + intentional weight loss, no fever and no night sweats ???Eyes: No eye discharge, no itching, no redness. ???Ear nose throat: No sore throat, postnasal drip, runny nose, Sneezing ???Cardiovascular: No chest pain, no shortness of breath, no dyspnea on exertion, no PND, no orthopnea, no irregular pulse ???Respiratory: + cough, no hemoptysis, + green sputum, no wheezing ???GI, no diarrhea, no constipation no blood in the stools, no pain associated with eating, no indigestion ???Genitourinary: No painful urination no hesitancy no blood in the urine ???Musculoskeletal, no limitations to walking and running, no joint deformity, no joint stiffness, no chronic back pain, no noise with joint movement ???Integumentary, no new skin rash. No new changes in skin moles ???Neurological: No history of seizures, memory loss, No language dysfunction, No inability to concentrate, no localized weakness, no sensation loss, no confusion ???Psychiatric: No depression, no suicidal thoughts, no anxiety ???Endocrine: No polyuria no polyphagia or polydipsia, no heat intolerance no cold intolerance ???Hematological: No easy bruising or Lymph node swelling. * Medical History:??Depression , unspecified, Obesity (BMI 30-39.9). * Surgical History:??gall blad consuelo removal , partial hysterectomy 2015, gastric sleeve 09/01/20, abdominoplasty Aug 2023. * Hospitalization/Major Diagno stic Procedure:??Denies Past Hospitalization. * Family History:??Father: fabiana webster, diagnosed with Unspecified essential hypertension.??Mother: alive.??1 brother(s) , 2 sister(s) . 3 son(s) - healthy. .?? family hx of mental disease with mom and grandmother hypertension with father mom and grandmother and hx of diabetes with grandmother 3 children. 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 * Medications:??Taking Wegovy 2.4 MG/0.75ML Solution Auto-injector inject 2.4mg Subcutaneous once weekly , Not-Taking SUMAtriptan Succinate 100 MG Tablet 1 tablet Orally Daily As needed for headaches, Medication List reviewed and reconciled with the patient * Allergies:??N.K.D.A. Objective: * Vitals:??HR:75/min, BP:136/7 8mm Hg, Wt:169.4lbs, BMI:28.19Index, Ht: 65 in, Oxygen sat %:99%. * Examination: ?General Examination: ?General: Well appearing, well nourished, age appropriate in no acute distress. Speaking in full, clear sentences. ?SKIN: Warm, dry intact. No rashes/lesions. ?HEENT: Normocephalic atraumatic. EOM intact. No nystagmus noted. ?LUNGS: Clear to auscultation bilaterally, no wheezes, rales or rhonchi ?CARDIAC: Regular rate and rhythm, no murmurs, rubs or gallops. ?Abdomen: Soft, nontender, nondistended. No tenderness if all 4 quadrants. Normoactive bowel sounds. No masses palpable. ?Extremities: Warm and well perfused. No edema noted. ?Neuro: CN II-XI grossly intact. Speaking in full sentences. Assessment: * Assessment: 1.??Acute bronchitis, unspec ified - J20.9 (Primary)??2.??Cough, unspecified - R05.9?? #Acute bronchitis. Given the patient has had over 10 days of symptoms with no significant purulent, I will treat the patient with azithromycin 500 mg p.o. times day 1, and then to 50 x 4 days after. Patient instructed to complete entire course of antibiotics. Patient instructed to use additional contraceptive methods. She will be also be treated with 1 dose of Diflucan, as she is prone to yeast infections. Albuterol inhaler will be given per persistent cough as well as Tessalon Perles. Patient is instructed to rest, drink plenty of fluids. She is to call if symptoms do not improve. Patient may need an chest x-ray if symptoms do not improve. Patient denies any exertional symptoms or chest discomfort currently. Patient is instructed on ER criteria. All questions answered to patient satisfaction. Case discussed with collaborating physician Chio Miguel who reviewed the assessment and plan. Chart, medications, labs, vital signs reviewed. Dictation was accomplished with the use of [employer] voice recognition software, prone to medical misidentifications and grammatical errors. This is unintentional and the practitioner does try to identify and correct these, but some could still be present. Please do not hesitate to contact practitioner for clarification. All questions answered to patients satisfaction. Patient verbalized understanding of diagnosis and treatments explained. To call sooner prior to next visit it any questions/concerns arise. Plan: * Treatment: Care Plan: * Problems:?? * Images: Billing Information: * Visit Code:?? 52413 Office Visit, Est Pt., Level 4. * Procedure Codes:?? Care Plan Details* * Sign off status: Completed true * Provider:??MARIO MCELROY PA-C Date:??
--- OUTSIDE RECORDS SUMMARY | 2024-06-04 13:29 | XMS_ITS ---
Author Organization [facility] Address [address] [place] [address] Care Team Providers Care Shoeshiner Name Role Phone EDGAR CARMEN Unavailable [phone] REASON FOR VISIT cough Encounters Encounter Location Date Provider Diagnosis [address] [facility] [place] [address] [place] [address] 05/11/2024 EDGAR CARMEN PLAN OF TREATMENT Next Appt Details Provider Name:ROSANA JAVIER , 06/16/2024 10:15:00 AM, [address] [facility], [place] [address], [place], [address], Progress Notes * Daphney APPIAHDOB:1985 (39 yo F)Acc No.[id number]:05/11/2024 Patient:??Daphney APPIAH :1985?Age:39 Y?Sex:Fe male Address:[address] [place] [address] * true * Date:??
--- OUTSIDE RECORDS SUMMARY | 2024-06-04 13:29 | XMS_ITS ---
Author Organization [facility] Address [address] [place] [address] Care Team Providers Care Emissions Inspector Name Role Phone EDGAR MIGUEL Unavailable [phone] ROSANA JAVIER Unavailable [phone] ALLERGIES No Known Allergies REASON FOR REFERRAL Reason ADHD/ADD Evaluation Diagnosis 1 ADHD (attention defi cit hyperactivity disorder) evaluation (Z13.39) Referral Organization [place] [address] Referring Provider First Name ROSANA Referring Provider Last Name CONCEPCION Referring Provider Speciality Internal M edicine Referred Provider Specialty Psychiatry General Notes Mila Glover 05/18/2024 02:45:22 PM > Pt will go to [address] [place] [address], Martina Jurado. Will notify us if she needs a referral sent. Referral Priority Routine REASON FOR VISIT pt here for wt mgt follow up seca done MEDICATIONS Medication SIG (Take, Route, Frequency, Duration) Notes Start Date End Date Status Wegovy 2.4 MG/0.75ML inject 2.4 mg Subcutaneous once weekly for 28 days 06/23/2023 Active Benzonatate 200 MG 1 capsule as needed Orally Three times a day for 10 days 05/11/2024 Not-Taking Diflucan 150 MG 1 tablet Orally once for 1 days 05/11/2024 Not-Taking Albuterol Sulfate HFA 108 (90 Base) MCG/ACT 2 puff Inhalation every 4 hrs as needed for 30 days 05/11/2024 Not-Taking SUMAtriptan Succinate 100 MG 1 tablet Orally Daily for 30 days 11/11/2023 Not-Taking Azithromycin 250 MG 2 tablets on day # 1 , then 1 tab orally for 4 days Orally daily for 5 days 05/11/2024 Not-Taking SOCIAL HISTORY Tobacco Use: Social History Observation Description Date Details (start date - stop date) Never Smoker NA - NA Sex Assigned At : Social History Observation Description Sex Assigned At Unknown Tobacco Use/Smoking Question Answer Notes Are you a nonsmoker PROBLEMS Problem Type ICD Code Onset Dates Problem Status W/U Status Risk SNOMED Code Notes Problem Overweight (E66.3) Active confirmed 646970839 VITAL SIGNS Heart Rate 84 /min 05/18/2024 Blood pressure systolic 122 mm Hg 05/18/20 24 Blood pressure diastolic 78 mm Hg 024 Weight 160 lbs 05/18/2024 BMI 26.62 kg/m2 05/18/2024 Height 65 in 05/18/2024 Oximetry 98 % 05/18/2024 Encounters Encounter Location Date Provider Diagnosis [facility] [address] [facility] [address] [place] [address] 05/18/2024 ROSANA JAVIER Overweight E66.3 ; B VA 26.0-26.9,adult Z68.26 ; Nutritional counseling Z71.3 and Impaired concentration R41.840 ASSESSMENTS Encounter Date Diagnosis Assessment Notes Treatment Notes Treatment Clinical Notes 05/18/2024 Overweight (ICD-10 - E66.3) 05/18/2024 BMI 26.0-26.9,adult (ICD-10 - Z68.26) 05/18/2024 Nutritional counseling (ICD-10 - Z71.3) 05/18/2024 Impaired concentration (ICD-10 - R41.840) PLAN OF TREATMENT Medication Medication Name Sig Start Date Stop Date Notes Wegovy 2.4 MG/0.75ML inject 2.4 mg Subcu taneous once weekly for 28 days 06/23/2023 Referrals Referral Date Details ADHD/ADD Evaluation Next Appt Details Provider Name:ROSANA JAVIER , 06/16/2024 10:15:00 AM, [address] [facility] [address], [place], [address], Progress Notes * Daphney APPIAHDOB:1985 (39 yo F)Acc No.[id number]:05/18/2024 Patient:??Daphney APPIAH Provider:??ROSANA JAVIER :1985?Age:39 Y?Sex:Fe male Date:05/18/2024 Address:[id number] Subjective: * Chief Complaints: * ?1. Pt here for wt mgt follow up seca done. * HPI: ?Constitutional:? Daphney is a 39-year-old female with history of obesity and gastric bypass surgery who presents to office today for weight management follow-up. Patient was previously seen in the office for weight management on 04/13/2024 at which time weight was 168.9 pounds, BMI 28.1. Currently is taking Wegovy 2.4 mg once weekly. Patient's revised goal weight is between 150 and 155 pounds. She states that when she reaches this goal she would like to then work on increasing weight with muscle mass. Reports good diet at this time. She has been increasing her protein intake with mostly lean meats, occasionally has protein shakes or bars, snacks on rice cakes with peanut butter. Has been trying to increase her water intake since she has been recovering from a viral illness over the past 2 weeks. She has finished her Z- Grupo and her symptoms are improving. At this visit also reporting that she has been struggling with her concentration. Reports that she has difficulty maintaining productivity and staying on task. She is interested in evaluation for ADHD or ADD. ?[facility]. * ROS:?Constitutional: Denies sudden weight loss, fever, night sweats, excessive fatigue, or changes in sleep. ???CV: Denies chest pain or heart palpitations. ???Respiratory: Denies SOB, wheezing, or pleuritic pain. ???GI: Denies n/v/d, constipation, blood in stools, pain associated with eating, indigestion, or difficulty/pain with swallowing. ???MSK: Denies back pain, joint deformity/pain, or muscle weakness. ???Integumentary: Denies skin changes. ???Endocrine: Denies polyuria, polyphagia, or polydipsia. No heat/cold intolerance or excessive thirst. * Medical History:??Depression , unspecified, Obesity (BMI [...] children. 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 * Medications:??Taking Wegovy 2.4 MG/0.75ML Solution Auto-injector inject 2.4mg Subcutaneous once weekly , Not-Taking Azithromycin 250 MG Tablet 2 tablets on day # 1, then 1 tab orally for 4 days Orally daily , Not-Taking Benzonatate 200 MG Capsule 1 capsule as needed Orally Three times a day , Not-Taking Albuterol Sulfate HFA 108 (90 Base) MCG/ACT Aerosol Solution 2 puff Inhalation every 4 hrs as needed , Not-Taking Diflucan 150 MG Tablet 1 tablet Orally once , Not-Taking SUMAtriptan Succinate 100 MG Tablet 1 tablet Orally Daily As needed for headaches, Medication List reviewed and reconciled with the patient * Allergies:??N.K.D.A. Objective: * Vitals:??HR:84/min, BP:122/7 8mm Hg, Wt:160lbs, BMI:26.62Index, Ht: 65 in, Oxygen sat %:98%. * Physical Examination:?General: Age appropriate, well-appearing 39-year-old female in no acute distress, speaking in full sentences without respiratory compromise. Well groomed, well developed. Alert, interactive. ?Skin: Warm, dry and intact. No lesions/rashes/erythema. ?HEENT: Normocephalic/atraumatic. ?Neck/Thyroid: Thyroid symmetrical, nonenlarged, and free of nodules to palpation. ?Lungs: Clear to auscultation bilaterally. ?CV: Regular rate and rhythm without murmurs, rubs, or gallops. 2+ radial pulses bilaterally. ?Neuro: CN II-XII grossly intact. Steady gait with non-assisted ambulation observed. ?Psych: Stable mood and affect. Assessment: * Assessment: 1.??Overweight - E66.3 (Prim ehsan)??2.??BMI 26.0-26.9,adult - Z68.26??3.??Nutritional counseling - Z71.3??4.??Impaired concentration - R41.840?? Patient is here for weight m anagement follow-up. We focused on significance of healthy lifestyle changes. We talked about need to track steps with goal between 6000-10,000 steps daily, focus on portion control, read food labels, get adequate sleep between 7 to 8 hours, get adequate rest to the body, meditate, frequent nutritious meals including vegetables and healthy choices of lean meats, fish, and elimination of refined carbohydrates. We also talked about mindfulness and mindful eating. Particular focus was on maintaining portion control and high protein diet. Total time spent with 30 minutes with greater than 50% spent on counseling and coordinating care. 05/18/2024: Weight 160 pounds, BMI 26.62. Seca scan completed and interpreted with the patient today. She has been occurring for the past 2 weeks from a viral illness, has finished her Z-Grupo and feels better. She is currently taking Wegovy 2.4 mg once weekly for weight loss. She has revised her weight loss goal to between 150 and 155 pounds. Reports good diet. Has been trying to improve fluid intake. She will continue Wegovy 2.4 mg once weekly. Educated on proper use of medication and expected side effect profile including but not limited to nausea, constipation, abdominal pain or heartburn. She will follow-up in the office approximately 4 weeks for weight management. All patient questions answered at this time. # Difficulty concentrating: Patient reports that she has been experiencing trouble with maintaining good productivity and staying on task. She is interested in speaking with a provider for evaluation for ADHD or ADD. Patient was given information regarding a psychologist by the name of Martina Jurado in [facility]. Given contact information. Will continue to monitor. # Cough: Patient was recently seen in the office on 05/11/2024 for cough with associated sore throat, chest tightness and green sputum production for the past 10 days. Patient treated with a Z-Gurpo and has now finished antibiotics, patient states that she feels better. At that time also pretreated with 1 dose of Diflucan due to being prone to developing yeast infections. Also provided with albuterol inhaler for shortness of breath or wheezing and Tessalon Perles to be used as needed for persisting cough. Currently today she is without fever, cough, difficulty breathing, wheezing, GI symptoms, or weakness. Will continue to monitor for recurrence of symptoms. All questions have been answered to patient's satisfaction. Patient verbalized understanding of diagnosis and treatments explained. Advised to call sooner prior to next visit it any questions/concerns arise. Case discussed with collaborating physician Nury Miguel who reviewed the assessment and plan. Chart, medications, labs, vital signs reviewed. Dictation was accomplished with the use of [employer] voice recognition software, which is prone to medical misidentifications and grammatical errors. This are unintentional and the practitioner does try to identify and correct these, but some could still be present. Please do not hesitate to contact practitioner for clarification. Plan: * Treatment: 2.??Others? Referral To:Psychiatry ?Reason:ADHD/ADD Evaluation * Procedure Codes:??91370 P/M WELCOME WAGON HOSTESS, INDIV 15 MIN * Images: Billing Information: * Visit Code:?? 53423 Office Visit, Est Pt., Level 4. * Procedure Codes:?? 42884 P/M WELCOME WAGON HOSTESS, INDIV 15 MIN. * Sign off status: Completed true * Provider:??ROSANA JAVIER Date:?? 024 Consultation Request Notes Referral Date Referring Provider Referred Provider Not es 05/18/2024 ROSANA JAVIER , ADHD/ADD Mildred lemon
--- OUTSIDE RECORDS SUMMARY | 2024-06-04 13:30 | XMS_ITS | Patient Health Record ---
Author Organization [facility] Address [address] [place] [address] Care Team Providers Care Mysql Database Developer Name Role Phone KERMIT EDGAR Unavailable [phone] RAIMUNDO PÉREZ Unavailable [phone] CARMEN, AISHWARYABLANCA Unavailable [phone] MARIO MCELROY Unavailable [phone] KARENA RIVER Unavailable ROSANA JAVIER Unavailable [phone] ALLERGIES No Known Allergies RESULTS Component Value Reference Range Notes LIPID PROFILE Reviewed date:12/12/2023 08:46:10 AM Interpretation: Performing Lab: Notes/Report: CHOLESTEROL 144 0-200 mg/dL TRIGLYCERIDES 34 0-150 mg/dL CBC WITH AUTO DIFF Reviewed date:12/12/2023 09:04:24 AM Interpretation: Performing Lab: Notes/Report: WBC 4.4 4.8-10.8 x10-3/uL RBC 4.0 3.8-4.8 x10-6/uL HEMOGLOBIN 11.0 11.5-16.0 g/dL HEMATOCRIT 33.8 35-47 % MCV 85.1 79-98 fL MCH 27.7 27-32 pg MCHC 32.5 32-37 g/dL RDW 12.0 11-15 % PLT COUNT 251 130-400 x10-3/uL MEAN PLATELET VOLUME 10.2 7-11 fL NRBC % AUTO 0.0 <1 % NEUT % 55.7 LYMPH % 35.8 MONO % 6.2 EOS % 1.1 BASO % 0.7 IMMATURE GRANULOCYTES % 0.5 NRBC # AUTO 0.00 <0.1 x10-3/uL ABSOLUTE NEUT 2.45 1.5-7.0 x10-3/uL LYMPH # 1.57 1-5.0 x10-3/uL MONO # 0.27 0.2-1.0 x10-3/uL EOS # 0.05 0-0.5 x10-3/uL BASO # 0.03 0-0.2 x10-3/uL IMMATURE GRANULOCYTES # 0.02 0-0.03 x10-3/uL COMPREHENSIVE METABOLIC PANE L Reviewed date:12/12/2023 08:46:10 AM Interpretation: Performing Lab: Notes/Report: Note Original Orderi ng Provider: EDGAR CARMEN MD GLUCOSE 86 70-100 mg/dL Reference range applicable to fasting specimens only BUN 10 5-25 mg/dL CREAT 0.82 0.5-1.1 mg/dL GLOMERULAR FILTRATION RATE 94 >60 This eGFR result was calculated using the CKD-EPI 2020 Creatinine Equation SODIUM 142 135-145 mEq/L POTASSIUM 3.6 3.5-5.5 mmol/L CHLORIDE 108 96-110 mmol/L CO2 26 21-32 mmol/L ANION GAP 8 3-11 CALCIUM 8.7 8.5-10.5 mg/dL TOTAL PROTEIN 7.5 6.0-8.0 G/dL ALBUMIN 3.5 3.2-5.0 G/dL BILI,TOTAL 0.3 0.0-1.4 mg/dL SGOT 19 10-42 U/L SGPT 17 10-60 U/L ALK PHOS 59 42-121 U/L URINALYSIS Reviewed date:12/12/2023 09:06:25 AM Interpretation: Performing Lab: Notes/Report: Note Original Ordering Provider: EDGAR CARMEN MD [employer], a member of [address] [address] Jig Box Operator - Rosie Robert MD GLUCOSE, (UA) NEGATIVE NEGATIVE mg/dL BILIRUBIN, URINE NEGATIVE NEGATIVE KETONE, URINE TRACE NEGATIVE mg/dL SPECIFIC GRAVITY, URINE 1.026 1.003-1.030 BLOOD, URINE NEGATIVE NEGATIVE PH, URINE 6.0 5.0-8.0 PROTEIN, URINE NEGATIVE <= TRACE mg/dl UROBILINOGEN, URINE 0.2 0.2-1.0 E.U./dL NITRITE, URINE NEGATIVE NEGATIVE LEUKOCYTE ESTERASE, URINE NEGATIVE NEGATIVE Note Original Ordering Provider: EDGAR CARMEN MD [employer], a member of [address] [address] Jig Box Operator - Rosie Robert MD REASON FOR REFERRAL Reason ADHD/ADD Evaluation Diagnosis 1 ADHD (attention defi cit hyperactivity disorder) evaluation (Z13.39) Referral Organization [facility] 119 Referring Provider First Name ROSANA Referring Provider Last Name CONCEPCION Referring Provider Speciality Internal M edicine Referred Provider Specialty Psychiatry General Notes Mila Glover 05/18/2024 02:45:22 PM > Pt will go to [address] [place] [address], Martina Jurado. Will notify us if she needs a referral sent. Referral Priority Routine MEDICATIONS Medication SIG (Take, Route, Frequency, Duration) Notes Start Date End Date Status Wegovy 2.4 MG/0.75ML inject 2.4 mg Subcutaneous once weekly for 28 days 06/23/2023 Active Benzonatate 200 MG 1 capsule as needed Orally Three times a day for 10 days 05/11/2024 Not-Taking Azithromycin 250 MG 2 tablets on day # 1 , then 1 tab orally for 4 days Orally daily for 5 days 05/11/2024 Not-Taking Diflucan 150 MG 1 tablet Orally once for 1 days 05/11/2024 Not-Taking Albuterol Sulfate HFA 108 (90 Base) MCG/ACT 2 puff Inhalation every 4 hrs as needed for 30 days 05/11/2024 Not-Taking SUMAtriptan Succinate 100 MG 1 tablet Orally Daily for 30 days 11/11/2023 Not-Taking SOCIAL HISTORY Tobacco Use: Social History Observation Description Date Details (start date - stop date) Never Smoker NA - NA Sex Assigned At : Social History Observation Description Sex Assigned At Unknown Tobacco Use/Smoking Question Answer Notes Are you a nonsmoker Alcohol Screen (Audit-C) Question Answer Notes Did you have a drink containing alcohol in the p ast year? Yes Points 0 Interpretation Negative PROBLEMS Problem Type ICD Code Onset Dates Problem Status W/U Status Risk SNOMED Code Notes Problem Other obesity due to excess calories (E66.09) Active confirmed 487153712 Problem Overweight (E66.3) Active confirmed 238 047145 Problem Acquired hyperlipoproteinemia (E78.5) Active confirmed 8198391 Problem Annual physical exam (Z00.00) Active confirmed 678304179 Problem Obesity (BMI 30-39.9 ) (E66.9) Active confirmed Obesity (703867299) Problem Body mass index [BMI ] 31.0-31.9, adult (Z68.31) Active confirmed 645964299 Problem Body mass index [BMI ] 33.0-33.9, adult (Z68.33) Active confirmed 166031765 Problem Intractable migraine with aura without status migrainosus (G43.119) Active confirmed 372346559 Problem BMI 35.0-35.9,adult (Z68.35) Active confirmed Obese class II (09150337726755 5) Problem BMI 34.0-34.9,adult (Z68.34) Active confirmed Body mass index 30.00 to 34.99 (78931297523008 7) Problem ADD (attention defic it disorder) without hyperactivity (F98.8) Active confirmed ADD - Attention deficit disorder without hyperactivity (48438281) Problem ADHD (attention deficit hyperactivity disorder) evaluation (Z13.39) Active confirmed Attention deficit hyperactivity disorder (459959297) VITAL SIGNS Heart Rate 84 /min 05/18/2024 Oximetry 98 % 05/18/2024 Blood pressure diastolic 78 mm Hg 05/18/2024 Height 65 in 05/18/2024 Blood pressure systolic 122 mm Hg 05/18/2024 Weight 160 lbs 05/18/2024 BMI 26.62 kg/m2 05/18/2024 Encounters Encounter Location Date Provider Diagnosis [facility] [address] [place] [address] 06/04/2023 [facility] [address] [place] [address] 06/12/2023 KRISS PABONAN [facility] [address] [place] [address] 06/18/2023 MARIO LÓPEZA [facility] [address] [place] [address] 07/05/2023 EDGAR KERMIT [facility] [address] [place] [address] 10/20/2023 RAIMUNDO PÉREZ [facility] [address] [place] [address] 11/01/[address] [facility] [address] [facility] [place] [address] 11/15/2023 TALAL CARMEN [facility] [address] [place] [address] 12/26/[address] [facility] [address] [place], [place] 01/02/[address] [facility] [address] [place], [place] 01/13/2024 TALAL CARMEN [facility] [address] [place] [address] 06/10/2023 KARENA [employer] Obesity (BMI 30-39.9) E66.9 and BMI 34.0-34.9,adult Z68.34 [facility] [address] [place] [address] 06/28/2023 KARENA [employer] [facility] [address] [place] [address] 07/09/2023 TALAL CARMEN Obesity (BMI 30-39.9 ) E66.9 and BMI 34.0-34.9,adult Z68.34 [facility] [address] [place] [address] 09/29/2023 TALSALTY CARMEN Body mass index [BMI ] 33.0-33.9, adult Z68.33 and Obesity (BMI 30-39.9) E66.[address] [facility] [address] [facility] [address] [place], [place] 11/11/2023 TALSALTY CARMEN Intractable migraine with aura without status migrainosus G43.119 ; Other obesity due to excess calories E66.09 and Body mass index [BMI] 31.0-31.9, adult Z68.31 [facility] [address] [place] [address] 12/10/2023 TALAL CARMEN Obesity, Class I, BM I 30-34.9 E66.9 ; Anemia, unspecified type D64.9 and Body mass index [BMI] 31.0-31.9, adult Z68.31 [facility] [address] [place] [address] 02/04/2024 TALAL CARMEN Obesity (BMI 30-39.9 ) E66.9 and Body mass index [BMI] 29.0-29.9, adult Z68.[address] [facility] [address] [facility] [address] [place], [place] 04/13/2024 TALAL CARMEN Obesity (BMI 30-39.9 ) E66.9 and Body mass index [BMI] 29.0-29.9, adult Z68.[address] [facility] [address] [place] [address] 05/11/2024 MARIO MCELROY Acute bronchitis, unspecified J20.9 and Cough, unspecified R05.[address] [facility] [address] [place] [address] 05/18/2024 ROSANA JAVIER Overweight E66.3 ; B TN 26.0-26.9,adult Z68.26 ; Nutritional counseling Z71.3 and Impaired concentration R41.[address] [facility] [address] [place] [address] 06/12/2023 KARENA [employer] Obesity (BMI 30-39.9) E66.[address] [facility] [address] 06/23/2023 KARENA [employer] [facility] [address] [facility] [address] 06/23/2023 MARIO MCELROY [facility] [address] [place] [address] 07/28/[address] [facility] [address] [place] [address] 09/03/[address] [facility] [address] [place] [address] 09/22/[address] [facility] [address] [place] [address] 10/03/[address] [facility] [address] [place], [place] 10/14/2023 TALAL CARMEN [address] [facility] [address] [place], [place] 10/24/2023 TALAL CARMEN [address] [place] [address] 11/11/2023 TALAL CARMEN [address] [place] [address] 11/17/2023 TALAL CARMEN [address] [place] [address] 12/23/[address] [facility] [address] [place] [address] 01/02/[address] [facility] [address] [place] [address] [address] [facility] [address] [place] [address] 04/13/2024 TALAL CARMEN [address] [place] [address] 05/07/2024 TALAL CARMEN [address] [place] [address] 05/11/2024 TALAL CARMEN ASSESSMENTS Encounter Date Diagnosis Assessment Notes Treatment Notes Treatment Clinical Notes 06/10/2023 Obesity (BMI 30-39.9 ) (ICD-10 - E66.9) 06/12/2023 Obesity (BMI 30-39.9 ) (ICD-10 - E66.9) 07/09/2023 Obesity (BMI 30-39.9 ) (ICD-10 - E66.9) 07/09/2023 BMI 34.0-34.9,adult (ICD-10 - Z68.34) 09/29/2023 Obesity (BMI 30-39.9 ) (ICD-10 - E66.9) 09/29/2023 Body mass index [BMI ] 33.0-33.9, adult (ICD-10 - Z68.33) 11/11/2023 Other obesity due to excess calories (ICD-10 - E66.09) 12/10/2023 Obesity, Class I, BM I 30-34.9 (ICD-10 - E66.9) 02/04/2024 Obesity (BMI 30-39.9 ) (ICD-10 - E66.9) 02/04/2024 Body mass index [BMI ] 29.0-29.9, adult (ICD-10 - Z68.29) 04/13/2024 Obesity (BMI 30-39.9 ) (ICD-10 - E66.9) 05/11/2024 Acute bronchitis, unspecified (ICD-10 - J20.9) 05/11/2024 Cough, unspecified (ICD-10 - R05.9) 05/18/2024 Overweight (ICD-10 - E66.3) 05/18/2024 BMI 26.0-26.9,adult (ICD-10 - Z68.26) 11/11/2023 Intractable migraine with aura without status migrainosus (ICD-10 - G43.119) 12/10/2023 Anemia, unspecified type (ICD-10 - D64.9) 12/10/2023 Body mass index [BMI ] 31.0-31.9, adult (ICD-10 - Z68.31) 05/18/2024 Nutritional counseling (ICD-10 - Z71.3) 04/13/2024 Body mass index [BMI ] 29.0-29.9, adult (ICD-10 - Z68.29) 11/11/2023 Body mass index [BMI ] 31.0-31.9, adult (ICD-10 - Z68.31) 06/10/2023 BMI 34.0-34.9,adult (ICD-10 - Z68.34) 05/18/2024 Impaired concentration (ICD-10 - R41.840) PLAN OF TREATMENT Pending Test Test Name Order Date EKG 10/08/2022 LIPID PANEL, STANDARD 11/11/2023 COMPREHENSIVE METABOLIC PANEL 11/11/2023 CBC (INCLUDES DIFF/PLT) 11/11/2023 URINALYSIS, COMPLETE 11/11/2023 Next Appt Details Provider Name:ROSANA JAVIER , 06/16/2024 10:15:00 AM, [address] [facility] [address], [place], [address], Insurance Providers Payer Name Payer Address Payer Phone Subscriber Number Group Number Insured Name Patient Relationship to Insured Coverage Start Date Coverage End Date [facility] [address] [place] [address] [id number] Daphney Ng Self - patient is the insured MEDICATIONS ADMINISTERED Medication Instructions Date of Administration Dosage Notes MICC B12 INJECTION 01/24/2023 lot# [id number] MICC B12 INJECTION 04/17/2023 1 mL lot # [id number] MICC B12 INJECTION 05/01/2023 MICC B12 INJECTION 05/12/2023 [id number] MICC B12 INJECTION 09/29/2023 1.0 mL MICC B12 INJECTION 11/01/2023 1 mg [id number] MICC B12 INJECTION 12/10/2023 1.0 mL MICC B12 INJECTION 12/26/2023 1.0 mL MICC B12 INJECTION 01/02/2024 MICC B12 INJECTION 01/13/2024 1 mL Semaglutide 05/12/2023 [id number] 0.25 Semaglutide 05/20/2023 0.25 mg LRQ SQ Semaglutide 05/27/2023 0.25 mg LLQ SQ Semaglutide 06/04/2023 lot# [id number] 0.25mg Semaglutide 06/10/2023 0.5 Semaglutide 06/18/2023 0.5 mg LRQ SQ Semaglutide 06/28/2023 0.5 mg lot# [id number] 0.5mg vitamin b12 10/20/2023 1 mL MEDICAL (GENERAL) HISTORY Medical History History ICD Code Depression, unspecified F32.A Obesity (BMI 30-39.9) E66.9 Surgical History Surgery Date(Month/Year) gall bladder removal partial hysterectomy 2015 gastric sleeve 09/01/20 abdominoplasty Aug 2023
== END 2024-06-01 12:56 | disposition home or self-care (01) ==
LOC: HO.HBS 12:45
PROVIDERS: PCP Physician Assistant; Visit Provider Physician Assistant Surgical
DX: E66.3 Overweight (principal); Z68.27 Body mass index [BMI] 27.0-27.9, adult; Z90.3 Acquired absence of stomach [part of]; Z98.84 Bariatric surgery status
CPT/HCPCS: 99214

== ENCOUNTER → 2024-06-01 12:45 | Outpatient (BNVA) | payer OTHER, SELFPAY | PROVIDERS: PCP Physician Assistant; Visit Provider Physician Assistant Surgical | DX: Z98.84 Bariatric surgery status (principal) ==

== ENCOUNTER 2024-07-20 08:57 | Outpatient (REF) | payer OTHER, SELFPAY ==
[2024-07-20 10:10] LABS: MANUAL DIFF FLAG NO
[2024-07-20 10:43] LABS: Basophils Percent Auto 0.9 % (0-2); Eosinophils Absolute Auto 0.1 X10*3/uL (0.0-0.4); Eosinophils Percent Auto 1.6 % (0-4); Hematocrit 33.3 % (37.0-47.0); Hemoglobin 11.5 g/dl (12.0-16.0); Imm Gran Abs Auto 0.01 X10*3/uL (0.00-0.03); Imm Gran Pct Auto 0.2 % (0.0-0.4); Lymphocytes Absolute Auto 1.5 X10*3/uL (1.2-4.9); Lymphocytes Percent Auto 35.5 % (20-40); Mean Corpuscular HGB Conc 34.5 g/dl (31.0-35.0); Mean Corpuscular Hemoglobin 29.5 pg (27.0-33.0); Mean Corpuscular Volume 85.4 fL (80.0-98.0); Mean Platelet Volume 10.3 fL (9.4-12.3); Monocytes Absolute Auto 0.2 X10*3/uL (0.1-1.2); Monocytes Percent Auto 5.3 % (2-11); Neutrophils Absolute Auto 2.5 x10*3/uL (2.0-8.3); Neutrophils Percent Auto 56.5 % (45-73); Platelet Count 240 X10*3/uL (160-400); White Blood Count 4.3 X10*3/uL (4.8-10.8)
[2024-07-20 10:54] LABS: Estimated Average Glucose 94 mg/dL; Hemoglobin A1C 89.5074 umol/L; Hemoglobin A1c % 4.9 % (<6.0); Total Hemoglobin (HGBA1C) 2931.3596 umol/L
[2024-07-20 11:21] LABS: Alanine Aminotransferase 11 U/L (0-31); Albumin Level 4.1 g/dL (3.5-5.0); Alkaline Phosphatase 47 U/L (39-117); Anion Gap 10 (12-20); Aspartate Amino Transferase 18 U/L (5-31); Bilirubin Total 0.5 mg/dL (0.0-1.0); Blood Urea Nitrogen 11 mg/dL (9-16); C Reactive Protein 0.24 mg/dL (< or = 0.50); Calcium 9.1 mg/dL (8.4-10.2); Carbon Dioxide 26 mmol/L (22-29); Chloride 110 mmol/L (96-108); Cholesterol 163 mg/dL (<200); Estimated Glomerular Filt Rate > 60; Glucose Random 83 mg/dL (60-115); HDL Cholesterol 62 mg/dL (>40); Iron 31 mcg/dL (30-160); LDL Cholesterol Calculated 94 mg/dL (<100); Percent Iron Saturation 14 % (15-50); Potassium 4.1 mmol/L (3.3-5.1); Sodium 142 mmol/L (135-145); Total Iron Binding Capacity 216 mcg/dL (228-428); Total Protein 7.5 g/dL (6.5-8.0); Triglycerides 35 mg/dL (<150); Unsaturated Iron Binding 185 ug/dL
[2024-07-20 11:49] LABS: Folate 10.7 ng/mL (> or = 4.0); Vitamin B12 1301 pg/mL (200-900)
[2024-07-20 11:57] LABS: Ferritin 203 ng/mL (10-122); TSH reflex Free T4 1.24 uIU/mL (0.32-4.0); Vitamin D 25-OH Total 18.3 ng/mL (>30)
[2024-07-20 12:39] LABS: Insulin 3 uU/mL (2-29)
[2024-07-23 05:13] LABS: Zinc 53 mcg/dL (60-130)
[2024-07-23 17:53] LABS: Vitamin A 25 mcg/dL (38-98)
[2024-07-25 15:44] LABS: Vitamin B1 12 nmol/L (8-30)
== END 2024-07-20 08:58 | disposition home or self-care (01) ==
LOC: HO.LAB 08:57
PROVIDERS: PCP Internal Medicine; Visit Provider Physician Assistant Surgical
DX: Z98.84 Bariatric surgery status (principal); Z13.1 Encounter for screening for diabetes mellitus
CPT/HCPCS: 36415; 80053; 80061; 82306; 82607; 82728; 82746; 83036; 83525; 83540; 84425; 84443; 84590; 84630; 85025; 86140

== ENCOUNTER 2024-07-20 08:57 | Outpatient (AMB) | payer OTHER, SELFPAY ==
--- NOTE | 2024-07-20 09:06 | A.OFFVIS_ITS ---
VS Expanded 07/20/24 09:09 BP 116/73 Blood Pressure Location Lt brachial Blood Pressure Position Sitting Pulse 87 Pulse Source Pulse Oximeter Pulse Oximetry 100 Oxygen Delivery Method Room Air Height 5 ft 4.5 in Weight 157 lb 6.4 oz BMI 26.6 Body Fat % 38.0 Body Fat Mass 59.8 Fat Free Mass 97.4 Visceral Fat Rating 6.0 Body Water % 44.3 Body Water Mass 69.6 Muscle Mass/Score 92.6 Basal Metabolic Rate/Score 1,360 Intake Visit Reasons: [place] [facility] Clinical Laboratory Assistant Required: No Allergies No Known Allergies Allergy (Verified 07/20/24 09:06) Medication List - Last Reconciled 07/20/24 by CHEN Ceja semaglutide (weight loss) (Wegovy) 2.4 mg subcut .Q2week HPI Comments Details: This?is a?39?yo female who is s/p LSG 08/31/2020. Weight loss of 3.6lbs since last OV in May.? No complaints of nausea, emesis, abdominal pain or reflux, or constipation. Continues on Wegovy, stable on same dose for a few months. Present meal plan includes: stil struggles to get enough protein in- has tried to increase intake of Vietnamese yogurt, protein shakes has bought protein oatmeal snacks on rice cakes with PB Exercise: stopped working out with a physical fitness trainer Pt has excess skin of arms which is bothersome. This has been occurring for over a year. Excess skin gets in the way of movement, particularly walking. It is difficult for her to find clothing that fits well due to the volume of the exc ess skin not fitting in sleeves but not fitting the rest of her body well. If she wears a sleeveless shirt the skin can rub together and cause some chafing. Has bought compressive sleeves but has not found them very helpful. The excess skin hanging causes discomfort due to its heaviness. Have you been diagnosed with reflux (GERD)? Score 0-5: 0=no symptoms, 1=noticeable but not bothersome (slight or occasional), 2=noticeable, bothersome but not daily, 3=bothersome and daily, 4=affects daily activities, 5=incapacitating, unable to do daily activities How bad is the heartburn: 0 Heartburn when lying down: 0 Heartburn when standing up: 0 Heartburn after meals: 0 Does heartburn change your diet: 0 Does heartburn wake you up from sleep: 0 Do you have difficulty swallowin Do you have pain with swallowin If you take medication for reflux, does this affect your daily life: 0 Total score: 0 PFSH Medical History Steatosis, liver Obesity Vitamin A deficiency Preprocedural examination Depression Surgical History History of sleeve gastrectomy Morbid obesity History of partial hysterectomy Hx of cholecystectomy Family History Mother Vision decreased Hypertension Father Diabetes Brother No problems noted. Sister Hypertension Sister No problems noted. 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 Do you presently have visiting nurse or other home services: No Alcohol intake: current Alcohol intake frequency: holidays/special occasions only service: No Current occupational status: employed Physical Exam Vital Signs: Last Vital Signs Pulse 87 07/20/24 09:09 BP 116/73 07/20/24 09:09 Pulse Ox 100 07/20/24 09:09 Oxygen Delivery Method Room Air 07/20/24 09:09 BMI result Body Mass Index 26.6 Const General: cooperative, comfortable and no acute distress Orientation/consciousness: patient oriented x3 GI Other: excess skin of arms, to max length of 9cm bilaterally Neuro General: patient oriented x3 Assessment & Plan Assessment & Plan (1) Overweight: Code(s): E66.3 - Overweight Category: Medical (2) S/P laparoscopic sleeve gastrectomy: Code(s): Z98.84 - Bariatric surgery status Category: Surgical (3) Excess skin: Code(s): L98.7 - Excessive and redundant skin and subcutaneous tissue Category: Medical Plan Pt has done very well with weight loss achieving a BMI < 27 and with TBWL 44.4%. We discussed that she still needs to try to increase protein intake especially with the possibility of another surgery in the future. Discussed importance of resuming regular exercise as well. Pt is experiencing problems of excess skin of bilateral upper arms, resulting in limitation of activities of daily living, compromise to integrity of skin, inability to find clothes that fit properly, and discomfort due to heaviness of excess skin. Conservative measures have not been effective in relieving these issues. She would benefit from brachioplasty for definitive treatment. Photos taken today, will submit to insurance. Pt plans to have labs done today. I spent a total of 30 minutes reviewing/updating records, examining the patient and counseling the patient on weight management as detailed above.
[2024-07-20 09:09] VITALS: BP 116/73; PULSE 87; O2SAT 100; BMI 26.6
--- OUTSIDE RECORDS SUMMARY | 2024-07-20 09:19 | XMS_ITS ---
Author Organization [facility] Address [address] [place] [address] Care Team Providers Care Benefit Specialist Name Role Phone EDGAR MIGUEL Unavailable [phone] ROSANA JVAIER Unavailable [phone] ALLERGIES No Known Allergies REASON FOR REFERRAL Reason ADHD/ADD Evaluation Diagnosis 1 ADHD (attention defi cit hyperactivity disorder) evaluation (Z13.39) Referral Organization [place] [address] Referring Provider First Name ROSANA Referring Provider Last Name CONCEPCION Referring Provider Speciality Internal M edicine Referred Provider Specialty Psychiatry General Notes Mila Glover 05/18/2024 02:45:22 PM > Pt will go to [address] [place] [address], Martina Jurado. 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 PROBLEMS Problem Type ICD Code Onset Dates Problem Status W/U Status Risk SNOMED Code Notes Problem Overweight (E66.3) Active confirmed [id number] VITAL SIGNS Heart Rate 84 /min 05/18/2024 Blood pressure systolic 122 mm Hg 05/18/20 24 Blood pressure diastolic 78 mm Hg 024 Weight 160 lbs 05/18/2024 BMI 26.62 kg/m2 05/18/2024 Height 65 in 05/18/2024 Oximetry 98 % 05/18/2024 Encounters Encounter Location Date Provider Diagnosis [facility] [address] [facility] [address] [place] [address] 05/18/2024 ROSANA JAVIER Overweight E66.3 ; B DC 26.0-26.9,adult Z68.26 ; Nutritional counseling Z71.3 and Impaired concentration R41.840 ASSESSMENTS Encounter Date Diagnosis Assessment Notes Treatment Notes Treatment Clinical Notes Section Notes 05/18/2024 Overweight (ICD-10 - E66.3) Patient is here for weight management follow-up. We focused on significance of healthy [...] regarding a psychologist by the name of Mratina Jurado in [facility]. Given contact information. Will continue to monitor. # Cough: Patient was recently seen in the office on 05/11/2024 for cough with associated sore throat, chest tightness and green sputum production for the past 10 days. Patient treated with a Z-Grupo and has now finished antibiotics, patient states [...] Dictation was accomplished with the use of [email or web address] voice recognition software, which is prone to medical misidentifications and grammatical errors. This are unintentional and the practitioner does try to identify and correct these, but some could still be present. Please do not hesitate to contact practitioner for clarification. 05/18/2024 BMI 26.0-26.9,adult (ICD-10 - Z68.26) Patient is here for weight management follow-up. We focused on significance of healthy [...] by the name of Martina Jurado in [facility]. Given contact information. Will continue to monitor. # Cough: Patient was recently seen in the office on 05/11/2024 for cough with associated sore throat, chest tightness and green sputum production for the past 10 days. Patient treated with a Z-Grupo and has now finished antibiotics, patient states [...] Dictation was accomplished with the use of [email or web address] voice recognition software, which is prone to medical misidentifications and grammatical errors. This are unintentional and the practitioner does try to identify and correct these, but some could still be present. Please do not hesitate to contact practitioner for clarification. 05/18/2024 Nutritional counseling (ICD-10 - Z71.3) Patient is here for weight management follow-up. We focused on significance of healthy [...] by the name of Martina Jurado in [facility]. Given contact information. Will continue to monitor. # Cough: Patient was recently seen in the office on 05/11/2024 for cough with associated sore throat, chest tightness and green sputum production for the past 10 days. Patient treated with a Z-Grupo and has now finished antibiotics, patient states [...] Dictation was accomplished with the use of [email or web address] voice recognition software, which is prone to medical misidentifications and grammatical errors. This are unintentional and the practitioner does try to identify and correct these, but some could still be present. Please do not hesitate to contact practitioner for clarification. 05/18/2024 Impaired concentration (ICD-10 - R41.840) Patient is here for weight management follow-up. We focused on significance of healthy [...] by the name of Martina Jurado in [facility]. Given contact information. Will continue to monitor. # Cough: Patient was recently seen in the office on 05/11/2024 for cough with associated sore throat, chest tightness and green sputum production for the past 10 days. Patient treated with a Z-Grupo and has now finished antibiotics, patient states [...] Dictation was accomplished with the use of [email or web address] voice recognition software, which is prone to medical misidentifications and grammatical errors. This are unintentional and the practitioner does try to identify and correct these, but some could still be present. Please do not hesitate to contact practitioner for clarification. PLAN OF TREATMENT Medication Medication Name Sig Start Date Stop Date Notes Wegovy 2.4 MG/0.75ML inject 2.4 mg Subcu taneous once weekly for 28 days 06/23/2023 Referrals Referral Date Details ADHD/ADD Evaluation Next Appt Details Provider Name:ROSANA JAVIER , 08/12/2024 08:00:00 AM, [address] [facility], [facility] [address], [place], [address], Progress Notes * Daphney APPIAHDOB:1985 (39 yo F)Acc No.[id number]:05/18/2024 Patient:??Daphney APPIAH Provider:??ROSANA CONCEPCION :1985?Age:39 Y?Sex:Fe male Date:05/18/2024 Address:[id number] Subjective: * Chief Complaints: * ?1. Pt [...] in evaluation for ADHD or ADD. ?[facility]. * ROS:?Constitutional: Denies sudden weight loss, [...] children. 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 * Medications:??Taking Wegovy 2.4 MG/0.75ML Solution Auto-injector [...] by the name of Martina Jurado in [facility]. Given contact information. Will continue to monitor. # Cough: Patient was recently seen in the office on 05/11/2024 for cough with associated sore throat, chest tightness and green sputum production for the past 10 days. Patient treated with a Z-Grupo and has now finished antibiotics, patient states [...] Dictation was accomplished with the use of [email or web address] voice recognition software, which is prone to medical misidentifications and grammatical errors. This are unintentional and the practitioner does try to identify and correct these, but some could still be present. Please do not hesitate to contact practitioner for clarification. Plan: * Treatment: 2.??Others? Referral To:Psychiatry ?Reason:ADHD/ADD Evaluation * Procedure Codes:??11381 P/M FIRE PROTECTION DESIGNER, INDIV 15 MIN * Images: Billing Information: * Visit Code:?? 65013 Office Visit, Est Pt., Level 4. * Procedure Codes:?? 92846 P/M FIRE PROTECTION DESIGNER, INDIV 15 MIN. * Sign off status: Completed true * Provider:??ROSANA JAVIER Date:?? 024 History and Physical Notes * HPI (History of Present Illness) Category Sub-Category Detail Notes Category Not es Constitutional Daphney is a 39-year-old female with history [...] past 2 weeks. She has finished her Z-Grupo and her symptoms are improving. At this visit also reporting that she has been struggling with her concentration. Reports that she has difficulty maintaining productivity and staying on task. She is interested in evaluation for ADHD or ADD. [facility] Physical Examination Category Sub-Category Detail Notes Section Note s General: Age appropriate, well-appearing 39-year-old female in no acute distress, speaking in full sentences without respiratory compromise. Well groomed, well developed. Alert, interactive. Skin: Warm, dry and intact. No lesions/rashes/erythema. HEENT: Normocephalic/atraumatic. Neck/Thyroid: Thyroid symmetrical, nonenlarged, and free of nodules to palpation. Lungs: Clear to auscultation bilaterally. CV: Regular rate and rhythm without murmurs, rubs, or gallops. 2+ radial pulses bilaterally. Neuro: CN II-XII grossly intact. Steady gait with non-assisted ambulation observed. Psych: Stable mood and affect. Consultation Request Notes Referral Date Referring Provider Referred Provider Not es 05/18/2024 ROSANA JAVIER , ADHD/ADD Mildred lemon
--- OUTSIDE RECORDS SUMMARY | 2024-07-20 09:19 | XMS_ITS ---
Author Organization [facility] Address [address] [place] [address] Care Team Providers Care Topper Press Operator Name Role Phone EDGAR MIGUEL Unavailable [phone] COMPAROSANA WASHBURN Unavailable [phone] REASON FOR VISIT Patient is here weight management follow up with consurt about what is the next step if she stop wegovy MEDICATIONS Medication SIG (Take, Route, Frequency, Duration) Notes Start Date End Date Status SUMAtriptan Succinate 100 MG 1 tablet Orally Daily for 30 days 11/11/2023 Not-Taking Azithromycin 250 MG 2 tablets on day # 1 , then 1 tab orally for 4 days Orally daily for 5 days 05/11/2024 Not-Taking Benzonatate 200 MG 1 capsule as needed Orally Three times a day for 10 days 05/11/2024 Not-Taking Diflucan 150 MG 1 tablet Orally once for 1 days 05/11/2024 Not-Taking Wegovy 2.4 MG/0.75ML inject 2.4 mg Subcutaneous once weekly for 28 days 06/23/2023 Active Albuterol Sulfate HFA 108 (90 Base) MCG/ACT 2 puff Inhalation every 4 hrs as needed for 30 days 05/11/2024 Not-Taking SOCIAL HISTORY Tobacco Use: Social History Observation Description Date Details (start date - stop date) Never Smoker NA - NA Sex Assigned At : Social History Observation Description Sex Assigned At Unknown Tobacco Use/Smoking Question Answer Notes 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 Heart Rate 83 /min 06/16/2024 Blood pressure systolic 122 mm Hg 06/16/20 24 Blood pressure diastolic 74 mm Hg 024 Weight 161.6 lbs 06/16/2024 BMI 26.89 kg/m2 06/16/2024 Height 65 in 06/16/2024 Oximetry 99 % 06/16/2024 Encounters Encounter Location Date Provider Diagnosis [facility] [address] [facility] [address] [place] [address] 06/16/2024 ROSANA JAVIER Overweight E66.3 ; B NH 26.0-26.9,adult Z68.26 and Nutritional counseling Z71.3 ASSESSMENTS Encounter Date Diagnosis Assessment Notes Treatment Notes Treatment Clinical Notes Section Notes 06/16/2024 Overweight (ICD-10 - E66.3) Patient is here [...] All patient questions answered at this time. 06/16/2024: Weight 161.6 pounds, BMI 26.89. Seca scan completed today and interpreted with the patient. She has decreased 1 pound of fat mass and is increasing muscle mass by nearly 1 pound. Visceral adipose tissue index continues to decrease and is in normal ranges. Plan at this time is to continue Wegovy 2.4 mg once weekly. Very close to goal weight of 155 pounds at which time she will begin maintenance dosing every other week as we taper her off the medication over time. Patient is understanding of this plan. She has 2 more pens left and then will require refill. She will follow-up in the office in approximately 4 weeks for continued weight management. All questions have been answered to patient's satisfaction. Patient verbalized understanding of diagnosis and treatments explained. Advised to call sooner prior to next visit it any questions/concerns arise. Case discussed with collaborating physician Nury Miguel who reviewed the assessment and plan. Chart, medications, labs, vital signs reviewed. Dictation was accomplished with the use of [employer] voice recognition software, which is prone to medical misidentifications and grammatical errors. This are unintentional and the practitioner does try to identify and correct these, but some could still be present. Please do not hesitate to contact practitioner for clarification. 06/16/2024 BMI 26.0-26.9,adul t (ICD-10 - Z68.26) Patient is here for [...] All patient questions answered at this time. 06/16/2024: Weight 161.6 pounds, BMI 26.89. Seca scan completed today and interpreted with the patient. She has decreased 1 pound of fat mass and is increasing muscle mass by nearly 1 pound. Visceral adipose tissue index continues to decrease and is in normal ranges. Plan at this time is to continue Wegovy 2.4 mg once weekly. Very close to goal weight of 155 pounds at which time she will begin maintenance dosing every other week as we taper her off the medication over time. Patient is understanding of this plan. She has 2 more pens left and then will require refill. She will follow-up in the office in approximately 4 weeks for continued weight management. All questions have been answered to patient's satisfaction. Patient verbalized understanding of diagnosis and treatments explained. Advised to call sooner prior to next visit it any questions/concerns arise. Case discussed with collaborating physician Nury Miguel who reviewed the assessment and plan. Chart, medications, labs, vital signs reviewed. Dictation was accomplished with the use of [employer] voice recognition software, which is prone to medical misidentifications and grammatical errors. This are unintentional and the practitioner does try to identify and correct these, but some could still be present. Please do not hesitate to contact practitioner for clarification. 06/16/2024 Nutritional counseling (ICD-10 - Z71.3) Patient is [...] All patient questions answered at this time. 06/16/2024: Weight 161.6 pounds, BMI 26.89. Seca scan completed today and interpreted with the patient. She has decreased 1 pound of fat mass and is increasing muscle mass by nearly 1 pound. Visceral adipose tissue index continues to decrease and is in normal ranges. Plan at this time is to continue Wegovy 2.4 mg once weekly. Very close to goal weight of 155 pounds at which time she will begin maintenance dosing every other week as we taper her off the medication over time. Patient is understanding of this plan. She has 2 more pens left and then will require refill. She will follow-up in the office in approximately 4 weeks for continued weight management. All questions have been answered to patient's satisfaction. Patient verbalized understanding of diagnosis and treatments explained. Advised to call sooner prior to next visit it any questions/concerns arise. Case discussed with collaborating physician Nury Miguel who reviewed the assessment and plan. Chart, medications, labs, vital signs reviewed. Dictation was accomplished with the use of [employer] voice recognition software, which is prone to medical misidentifications and grammatical errors. This are unintentional and the practitioner does try to identify and correct these, but some could still be present. Please do not hesitate to contact practitioner for clarification. PLAN OF TREATMENT Next Appt Details Provider Name:ROSANA JAVIER , 08/12/2024 08:00:00 AM, [address] [place] [address], [place] [address], [place], [address], Progress Notes * Daphney APPIAHDOB:1985 (39 yo F)Acc No.[id number]:06/16/2024 Patient:??Daphney APPIAH Provider:??ROSANA JAVIER :1985?Age:39 Y?Sex:Fe male Date:06/16/2024 Address:[id number] Subjective: * Chief Complaints: * ?1. Patient is here patrice ght management follow up with consurt about what is the next step if she stop wegovy. * HPI: ?Constitutional:? Daphney is a 39-year-old female with history of obesity status post gastric bypass surgery who presents to the office today for weight management follow-up. She was last seen in the office on 05/18/2024 at which time weight was 160 pounds, BMI 26.62. She is currently on Wegovy 2.4 mg once weekly. Continues to tolerate the medication well. Has good suppression of her appetite on the current dose. She is very close to her goal weight of approximately 155 pounds. She is interested in maintenance dosing when she achieves this goal. Continues to report no side effects at this time. Reports following a balanced diet. * ROS:?Constitutional: Denies sudden weight loss, fever, [...] gastric sleeve 09/01/20, abdominoplasty Aug 2023. * Family History:??Father: fabiana darin, diagnosed with Unspecified essential hypertension.??Mother: alive.??1 brother(s) , 2 sister(s) . 3 son(s) - healthy. .?? family hx of mental disease with mom and grandmother hypertension with father mom and grandmother and hx of diabetes with grandmother 3 children. 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 * Medications:??Taking Wegovy 2.4 MG/0.75ML Solution Auto-injector inject 2.4 mg Subcutaneous once weekly , Not-Taking Azithromycin 250 [...] List reviewed and reconciled with the patient Objective: * Vitals:??HR:83/min, BP:122/7 4mm Hg, Wt:161.6lbs, BMI:26.89Index, Ht: 65 in, Oxygen sat %:99%. * Physical Examination:?General: Age appropriate, well-appearing 39-year-old [...] (Prim ehsan)??2.??BMI 26.0-26.9,adult - Z68.26??3.??Nutritional counseling - Z71.3?? Patient is here for weight m anagement [...] All patient questions answered at this time. 06/16/2024: Weight 161.6 pounds, BMI 26.89. Seca scan completed today and interpreted with the patient. She has decreased 1 pound of fat mass and is increasing muscle mass by nearly 1 pound. Visceral adipose tissue index continues to decrease and is in normal ranges. Plan at this time is to continue Wegovy 2.4 mg once weekly. Very close to goal weight of 155 pounds at which time she will begin maintenance dosing every other week as we taper her off the medication over time. Patient is understanding of this plan. She has 2 more pens left and then will require refill. She will follow-up in the office in approximately 4 weeks for continued weight management. All questions have been answered to patient's satisfaction. Patient verbalized understanding of diagnosis and treatments explained. Advised to call sooner prior to next visit it any questions/concerns arise. Case discussed with collaborating physician Nury Miguel who reviewed the assessment and plan. Chart, medications, labs, vital signs reviewed. Dictation was accomplished with the use of [employer] voice recognition software, which is prone to medical misidentifications and grammatical errors. This are unintentional and the practitioner does try to identify and correct these, but some could still be present. Please do not hesitate to contact practitioner for clarification. Plan: * Treatment: * Procedure Codes:??94236 P/M WOOL BROKER, INDIV 15 MIN * Images: Billing Information: * Visit Code:?? 90620 Office Visit, Est Pt., Level 4. * Procedure Codes:?? 32350 P/M WOOL BROKER, INDIV 15 MIN. * Sign off status: Completed true * Provider:??ROSANA JAVIER Date:?? 024 History and Physical Notes * HPI (History of Present Illness) Category Sub-Category Detail Notes Category Not es Constitutional Daphney is a [age]-year-old female with history of obesity status post gastric bypass surgery who presents to the office today for weight management follow-up. She was last seen in the office on 05/18/2024 at which time weight was 160 pounds, BMI 26.62. She is currently on Wegovy 2.4 mg once weekly. Continues to tolerate the medication well. Has good suppression of her appetite on the current dose. She is very close to her goal weight of approximately 155 pounds. She is interested in maintenance dosing when she achieves this goal. Continues to report no side effects at this time. Reports following a balanced diet. Physical Examination Category Sub-Category Detail Notes Section [...]
--- OUTSIDE RECORDS SUMMARY | 2024-07-20 09:19 | XMS_ITS ---
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 Name Role Phone EDGAR MIGUEL Unavailable [phone] COMPAROSANA WASHBURN Unavailable [phone] ALLERGIES No Known Allergies REASON FOR VISIT pot here for wt mgt vivian khan pt is requesting zofran for nausea MEDICATIONS Medication SIG (Take, Route, Frequency, Duration) Notes Start Date End Date Status Albuterol Sulfate HFA 108 (90 Base) MCG/ACT 2 puff Inhalation every 4 hrs as needed for 30 days 05/11/2024 Not-Taking Diflucan 150 MG 1 tablet Orally once for 1 days 05/11/2024 Not-Taking SUMAtriptan Succinate 100 MG 1 tablet Orally Daily for 30 days 11/11/2023 Not-Taking Azithromycin 250 MG 2 tablets on day # 1 , then 1 tab orally for 4 days Orally daily for 5 days 05/11/2024 Not-Taking Benzonatate 200 MG 1 capsule as needed Orally Three times a day for 10 days 05/11/2024 Not-Taking Wegovy 2.4 MG/0.75ML inject 2.4 mg Subcutaneous once weekly for 28 days 06/23/2023 Active Ondansetron HCl 8 MG 1 tablet as needed for nausea/vomiting Orally Once a day for 30 days 07/15/2024 Active SOCIAL HISTORY Tobacco Use: Social History Observation Description Date Details (start date - stop date) Never Smoker NA - NA Sex Assigned At : Social History Observation Description Sex Assigned At Unknown Tobacco Use/Smoking Question Answer Notes 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 Heart Rate 84 /min 07/15/2024 Blood pressure systolic 120 mm Hg 07/15/19 25 Blood pressure diastolic 80 mm Hg 025 Weight 159 lbs 07/15/2024 BMI 26.46 kg/m2 07/15/2024 Height 65 in 07/15/2024 Oximetry 99 % 07/15/2024 Encounters Encounter Location Date Provider Diagnosis [facility] [address] [place] [address] 07/15/2024 ROSANA JAVIER Overweight E66.3 ; B [place] 26.0-26.9,adult Z68.26 ; Nutritional counseling Z71.3 and Nausea R11.0 ASSESSMENTS Encounter Date Diagnosis Assessment Notes Treatment Notes Treatment Clinical Notes Section Notes 07/15/2024 Overweight (ICD-10 - E66.3) Patient is here [...] approximately 4 weeks for continued weight management. 07/15/2024: Weight to 159 pounds, BMI 26.46. Seca scan completed today and interpreted with the patient. Overall down 2 pounds. Fat mass consistent between visits at 65 pounds. Has had a decrease of muscle mass from 40 to 37 pounds which is on lower end of the scale. We discussed the importance of increasing her protein intake as well as beginning to incorporate resistance training minimum 3 times per week to maintain and build muscle mass. Patient is understanding. At this time plan to continue Wegovy 2.4 mg once weekly. Discussed proper use of medication and side effect profile. She will follow-up in the office in approximately 4 weeks. # Nausea: Begin Zofran 8 mg 1 tablet as needed daily for nausea/vomiting. Will continue to monitor. All questions have been answered to patient's satisfaction. Patient verbalized understanding of diagnosis and treatments explained. Advised to call sooner prior to next visit it any questions/concerns arise. Case discussed with collaborating physician Nury Miguel who reviewed the assessment and plan. Chart, medications, labs, vital signs reviewed. Dictation was accomplished with the use of [employer] voice recognition software, which is prone to medical misidentifications and grammatical errors. This are unintentional and the practitioner does try to identify and correct these, but some could still be present. Please do not hesitate to contact practitioner for clarification. 07/15/2024 BMI 26.0-26.9,adul t (ICD-10 - Z68.26) Patient [...] approximately 4 weeks for continued weight management. 07/15/2024: Weight to 159 pounds, BMI 26.46. Seca scan completed today and interpreted with the patient. Overall down 2 pounds. Fat mass consistent between visits at 65 pounds. Has had a decrease of muscle mass from 40 to 37 pounds which is on lower end of the scale. We discussed the importance of increasing her protein intake as well as beginning to incorporate resistance training minimum 3 times per week to maintain and build muscle mass. Patient is understanding. At this time plan to continue Wegovy 2.4 mg once weekly. Discussed proper use of medication and side effect profile. She will follow-up in the office in approximately 4 weeks. # Nausea: Begin Zofran 8 mg 1 tablet as needed daily for nausea/vomiting. Will continue to monitor. All questions have been answered to patient's satisfaction. Patient verbalized understanding of diagnosis and treatments explained. Advised to call sooner prior to next visit it any questions/concerns arise. Case discussed with collaborating physician Nury Miguel who reviewed the assessment and plan. Chart, medications, labs, vital signs reviewed. Dictation was accomplished with the use of [employer] voice recognition software, which is prone to medical misidentifications and grammatical errors. This are unintentional and the practitioner does try to identify and correct these, but some could still be present. Please do not hesitate to contact practitioner for clarification. 07/15/2024 Nutritional counseling (ICD-10 - Z71.3) Patient is [...] approximately 4 weeks for continued weight management. 07/15/2024: Weight to 159 pounds, BMI 26.46. Seca scan completed today and interpreted with the patient. Overall down 2 pounds. Fat mass consistent between visits at 65 pounds. Has had a decrease of muscle mass from 40 to 37 pounds which is on lower end of the scale. We discussed the importance of increasing her protein intake as well as beginning to incorporate resistance training minimum 3 times per week to maintain and build muscle mass. Patient is understanding. At this time plan to continue Wegovy 2.4 mg once weekly. Discussed proper use of medication and side effect profile. She will follow-up in the office in approximately 4 weeks. # Nausea: Begin Zofran 8 mg 1 tablet as needed daily for nausea/vomiting. Will continue to monitor. All questions have been answered to patient's satisfaction. Patient verbalized understanding of diagnosis and treatments explained. Advised to call sooner prior to next visit it any questions/concerns arise. Case discussed with collaborating physician Nury Miguel who reviewed the assessment and plan. Chart, medications, labs, vital signs reviewed. Dictation was accomplished with the use of [employer] voice recognition software, which is prone to medical misidentifications and grammatical errors. This are unintentional and the practitioner does try to identify and correct these, but some could still be present. Please do not hesitate to contact practitioner for clarification. 07/15/2024 Nausea (ICD-10 - R11.0) Patient is here for weight management follow-up. [...] approximately 4 weeks for continued weight management. 07/15/2024: Weight to 159 pounds, BMI 26.46. Seca scan completed today and interpreted with the patient. Overall down 2 pounds. Fat mass consistent between visits at 65 pounds. Has had a decrease of muscle mass from 40 to 37 pounds which is on lower end of the scale. We discussed the importance of increasing her protein intake as well as beginning to incorporate resistance training minimum 3 times per week to maintain and build muscle mass. Patient is understanding. At this time plan to continue Wegovy 2.4 mg once weekly. Discussed proper use of medication and side effect profile. She will follow-up in the office in approximately 4 weeks. # Nausea: Begin Zofran 8 mg 1 tablet as needed daily for nausea/vomiting. Will continue to monitor. All questions have been answered to patient's satisfaction. Patient verbalized understanding of diagnosis and treatments explained. Advised to call sooner prior to next visit it any questions/concerns arise. Case discussed with collaborating physician Nury Miguel who reviewed the assessment and plan. Chart, medications, labs, vital signs reviewed. Dictation was accomplished with the use of [employer] voice recognition software, which is prone to [...] taneous once weekly for 28 days 06/23/2023 Ondansetron HCl 8 MG 1 tablet as needed for nausea/vomiting Orally Once a day for 30 days 07/15/2024 Next Appt Details Provider Name:ROSANA BIRKS , 08/12/2024 08:00:00 AM, [address] [place] [address], [facility], [place], [address], Progress Notes * Daphney APPIAHDOB:1985 (39 yo F)Acc No.[id number]:07/15/2024 Patient:??Adrian APPIAHuna Provider:??ROSANA JAVIER :1985?Age:39 Y?Sex:Fe male Date:07/15/2024 Address:[address] [place] [address], [id number] Subjective: * Chief Complaints: * ?1. Pot here for wt mgt vivian khan pt is requesting zofran for nausea. * HPI: ?Constitutional:? Daphney is a 39-year-old female with history of obesity status post gastric bypass surgery who presents to the office today for weight management follow-up. Last visit for continued management on 06/16/2024 at which time weight was 161.6 pounds, BMI 26.89. Currently on Wegovy 2.4 mg once weekly. Patient reporting some nausea on the medication and requesting Zofran. Otherwise reports no vomiting, abdominal pain, heartburn, or constipation. Continues to report good effect of medication on appetite control. Reports no current exercise regimen however plans to increase her activity. Has also been trying to increase water intake. No other concerns at this time. Maintains goal of approximately 155 pounds. * ROS:?Constitutional: Denies sudden weight loss, fever, night sweats, excessive fatigue, or changes in sleep. ???CV: Denies chest pain or heart palpitations. ???Respiratory: Denies SOB, wheezing, or pleuritic pain. ???GI: + Nausea. Denies v/d, constipation, blood in stools, pain associated with [...] children. 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 * Medications:??Taking Wegovy 2.4 MG/0.75ML Solution [...] the patient * Allergies:??N.K.D.A. Objective: * Vitals:??HR:84/min, BP:120/8 0mm Hg, Wt:159lbs, BMI:26.46Index, Ht: 65 in, Oxygen sat %:99%. * [...] (Prim ehsan)??2.??BMI 26.0-26.9,adult - Z68.26??3.??Nutritional counseling - Z71.3??4.??Nausea - R11.0?? Patient is here for weight m anagement [...] approximately 4 weeks for continued weight management. 07/15/2024: Weight to 159 pounds, BMI 26.46. Seca scan completed today and interpreted with the patient. Overall down 2 pounds. Fat mass consistent between visits at 65 pounds. Has had a decrease of muscle mass from 40 to 37 pounds which is on lower end of the scale. We discussed the importance of increasing her protein intake as well as beginning to incorporate resistance training minimum 3 times per week to maintain and build muscle mass. Patient is understanding. At this time plan to continue Wegovy 2.4 mg once weekly. Discussed proper use of medication and side effect profile. She will follow-up in the office in approximately 4 weeks. # Nausea: Begin Zofran 8 mg 1 tablet as needed daily for nausea/vomiting. Will continue to monitor. All questions have been answered to patient's satisfaction. Patient verbalized understanding of diagnosis and treatments explained. Advised to call sooner prior to next visit it any questions/concerns arise. Case discussed with collaborating physician Nury Miguel who reviewed the assessment and plan. Chart, medications, labs, vital signs reviewed. Dictation was accomplished with the use of [employer] voice recognition software, which is prone to medical misidentifications and grammatical errors. This are unintentional and the practitioner does try to identify and correct these, but some could still be present. Please do not hesitate to contact practitioner for clarification. Plan: * Treatment: 2.??Nausea?? Start Ondansetron HCl Tablet, 8 MG, 1 tablet as needed for nausea/vomiting, Orally, Once a day, 30 days, 30 Tablet, Refills 0.? * Procedure Codes:??80784 P/M [employer] G[employer]ER, INDIV 15 MIN * Images: Billing Information: * Visit Code:?? 54772 Office Visit, Est Pt., Level 4. * Procedure Codes:?? 20249 P/M [employer] G[employer] TR[employer]ER, INDIV 15 MIN. * Sign off status: Completed true * Provider:??ROSANA JAVIER Date:?? 025 History and Physical Notes * HPI (History of Present Illness) Category Sub-Category Detail Notes Category Not es Constitutional Daphney is a [age]-year-old female with history of obesity status post gastric bypass surgery who presents to the office today for weight management follow-up. Last visit for continued management on 06/16/2024 at which time weight was 161.6 pounds, BMI 26.89. Currently on Wegovy 2.4 mg once weekly. Patient reporting some nausea on the medication and requesting Zofran. Otherwise reports no vomiting, abdominal pain, heartburn, or constipation. Continues to report good effect of medication on appetite control. Reports no current exercise regimen however plans to increase her activity. Has also been trying to increase water intake. No other concerns at this time. Maintains goal of approximately 155 pounds. Physical Examination Category Sub-Category Detail Notes Section [...]
--- OUTSIDE RECORDS SUMMARY | 2024-07-20 09:19 | XMS_ITS | Patient Health Record ---
Author Organization [facility] Address [address] [place] [address] Care Team Providers Care Adjunct Lecturer Name Role Phone EDGAR MIGUEL Unavailable [phone] BETODANIELEN Unavailable [phone] NAVIMARIO Unavailable [phone] BIRROSANA WASHBURN Unavailable [phone] ALLERGIES No Known Allergies RESULTS Component Value Reference Range Notes URINALYSIS Reviewed date:12/12/2023 09:06:25 AM Interpretation: Performing Lab: Notes/Report: Note Original Ordering Provider: EDGAR MIGUEL MD [employer] [address] Doctor Of Radiology - Rosie Robert MD GLUCOSE, (UA) NEGATIVE NEGATIVE mg/dL BILIRUBIN, URINE NEGATIVE NEGATIVE KETONE, URINE TRACE NEGATIVE mg/dL SPECIFIC GRAVITY, URINE 1.026 1.003-1.030 BLOOD, URINE NEGATIVE NEGATIVE PH, URINE 6.0 5.0-8.0 PROTEIN, URINE NEGATIVE <= TRACE mg/dl UROBILINOGEN, URINE 0.2 0.2-1.0 E.U./dL NITRITE, URINE NEGATIVE NEGATIVE LEUKOCYTE ESTERASE, URINE NEGATIVE NEGATIVE Note Original Ordering Provider: EDGAR MIGUEL MD [employer], a member of [address] [address] Doctor Of Radiology - Rosie Robert MD COMPREHENSIVE METABOLIC PANE L Reviewed date:12/12/2023 08:46:10 AM Interpretation: Performing Lab: Notes/Report: Note Original Orderi ng Provider: EDGAR MIGUEL MD GLUCOSE 86 70-100 mg/dL Reference range [...] 10-60 U/L ALK PHOS 59 42-121 U/L CBC WITH AUTO DIFF Reviewed date:12/12/2023 09:04:24 [...] x10-3/uL IMMATURE GRANULOCYTES # 0.02 0-0.03 x10-3/uL LIPID PROFILE Reviewed date:12/12/2023 08:46:10 AM Interpretation: Performing Lab: Notes/Report: CHOLESTEROL 144 0-200 mg/dL TRIGLYCERIDES 34 0-150 mg/dL REASON FOR REFERRAL Reason ADHD/ADD Evaluation Diagnosis 1 ADHD (attention defi cit hyperactivity disorder) evaluation (Z13.39) Referral Organization [facility] Referring Provider First Name ROSANA Referring Provider Last Name CONCEPCION Referring Provider Speciality Internal M edicine Referred Provider Specialty Psychiatry General Notes Mila Glover 05/18/2024 02:45:22 PM > Pt will go to [address] [place] [address], Martina Jurado. Will notify us if she [...] days 11/11/2023 Not-Taking Wegovy 2.4 MG/0.75ML inject 2.4 mg Subcutaneous once weekly for 28 days 06/23/2023 Active Azithromycin 250 MG 2 tablets on day # 1 , then 1 tab orally for 4 days Orally daily for 5 days 05/11/2024 Not-Taking Ondansetron HCl 8 MG 1 tablet as needed for nausea/vomiting Orally Once a day for 30 days 07/15/2024 Active Benzonatate 200 MG 1 capsule as needed Orally Three times a day for 10 days 05/11/2024 Not-Taking SOCIAL HISTORY Tobacco Use: [...] ast year? Yes Points 0 Interpretation Negative Section Notes: reproductive healthcare assistant reproductive healthcare assistant reproductive healthcare assistant reproductive healthcare assistant reproductive healthcare assistant reproductive healthcare assistant reproductive healthcare assistant reproductive healthcare assistant reproductive healthcare assistant reproductive healthcare assistant reproductive healthcare assistant reproductive healthcare assistant reproductive healthcare assistant reproductive healthcare assistant reproductive healthcare assistant reproductive healthcare assistant reproductive healthcare assistant PROBLEMS Problem Type ICD Code Onset Dates Problem Status W/U Status Risk SNOMED Code Notes Problem Other obesity due to excess calories (E66.09) Active confirmed 693327082 Problem Overweight (E66.3) Active confirmed [id number] Problem Acquired hyperlipoproteinemia (E78.5) Active confirmed 1219547 Problem Annual physical exam (Z00.00) Active confirmed 505519991 Problem Obesity (BMI 30-39.9 ) (E66.9) Active confirmed Obesity (888682220) Problem Body mass index [BMI ] 31.0-31.9, adult (Z68.31) Active confirmed 656258641 Problem Body mass index [BMI ] 33.0-33.9, adult (Z68.33) Active confirmed 531403726 Problem Intractable migraine with aura without status migrainosus (G43.119) Active confirmed 891414972 Problem BMI 35.0-35.9,adult (Z68.35) Active confirmed Obese class II (52819826168448 5) Problem BMI 34.0-34.9,adult (Z68.34) Active confirmed Body mass index 30.00 to 34.99 (83578534219639 7) Problem ADD (attention defic it disorder) without hyperactivity (F98.8) Active confirmed ADD - Attention deficit disorder without hyperactivity (14300143) Problem ADHD (attention deficit hyperactivity disorder) evaluation (Z13.39) Active confirmed Attention deficit hyperactivity disorder (204585520) VITAL SIGNS Heart Rate 84 /min 07/15/2024 Oximetry 99 % 07/15/2024 Blood pressure diastolic 80 mm Hg 07/15/2024 Height 65 in 07/15/2024 Blood pressure systolic 120 mm Hg 07/15/2024 Weight 159 lbs 07/15/2024 BMI 26.46 kg/m2 07/15/2024 Encounters Encounter Location Date Provider Diagnosis [facility] [address] [place] [address] 10/20/2023 [facility] [address] [place] [address] 11/01/2023 EDGAR MIGUEL [facility] [address] [place] [address] 11/15/2023 EDGAR MIGUEL [facility] [address] [place] [address] 12/26/2023 EDGAR MIGUEL [facility] [address] [facility] [address] [place] [address] 01/02/2024 RA[facility]UNDO [facility] [place] [address] 01/13/2024 TALAL MIGUEL [facility] [address] [place] [address] 09/29/2023 TALAL MIGUEL Body mass index [BMI ] 33.0-33.9, adult Z68.33 and Obesity (BMI 30-39.9) E66.9 [place] [address] 11/11/2023 TALAL MIGUEL Intractable migraine with aura without status migrainosus G43.119 ; Other obesity due to excess calories E66.09 and Body mass index [BMI] 31.0-31.9, adult Z68.31 [facility] [address] [place] [address] 12/10/2023 TALAL MIGUEL Obesity, Class I, BM I 30-34.9 E66.9 ; Anemia, unspecified type D64.9 and Body mass index [BMI] 31.0-31.9, adult Z68.31 [facility] [address] [place] [address] 02/04/2024 TALAL MIGUEL Obesity (BMI 30-39.9 ) E66.9 and Body mass index [BMI] 29.0-29.9, adult Z68.29 [place] [address] 04/13/2024 TALAL MIGUEL Obesity (BMI 30-39.9 ) E66.9 and Body mass index [BMI] 29.0-29.9, adult Z68.29 [facility] [address] [place] [address] 05/11/2024 MARIO MCELROY Acute bronchitis, unspecified J20.9 and Cough, unspecified R05.9 [place] [address] 05/18/2024 ROSANA JAVIER Overweight E66.3 ; B NC 26.0-26.9,adult Z68.26 ; Nutritional counseling Z71.3 and Impaired concentration R41.840 [place] [address] [address] 06/16/2024 ROSANA JAVIER Overweight E66.3 ; B NC 26.0-26.9,adult Z68.26 and Nutritional counseling Z71.[address] [place] [address] 07/15/2024 ROSANA BIRMADDISON Overweight E66.3 ; B NC 26.0-26.9,adult Z68.26 ; Nutritional counseling Z71.[address] R[address] [facility] [address] [place] [address] 07/28/[address] [facility] [address] [place] [address] 09/03/[address] [facility] [address] [place] [address] 09/22/[address] [facility] [address] [place] [address] 10/03/[address] [facility] [address] [place] [address] 10/14/2023 TALAL MIGUEL [address] [place] [address] 10/24/2023 TALAL MIGUEL [address] [place] [address] 11/11/2023 TALAL MIGUEL [address] [place] [address] 11/17/2023 TALAL MIGUEL [address] [place] [address] 12/23/[address] [facility] [address] [place] [address] 01/02/[address] [facility] [address] [place] [address] [address] [facility] [address] [place] [address] 04/13/2024 TALAL MIGUEL [address] [place] [address] 05/07/2024 TALAL MIGUEL [address] [place] [address] 05/11/2024 TALAL MIGUEL ASSESSMENTS Encounter Date Diagnosis Assessment Notes Treatment Notes Treatment Clinical Notes Section Notes 09/29/2023 Obesity (BMI 30-39.9) (ICD-10 - E66.9) 38-year-old female presents for weight management follow-up. #BMI 33: Patient is on Wegovy 1 mg weekly injections. She recently had an abdominoplasty 08/29 and states she is feeling well. Next appointment with Dr. Rincon is in October, she is hoping to be cleared to begin weight training again. She did lose 7 lbs from last visit. SECA scan reviewed, shows decrease in muscle mass and phase angle, as well as waist circumference. Patient educated on importance of improving protein intake to combat muscle mass loss, especially with lack of weight training. She was provided with high protein options, including broth, protein shakes, chicken, fish, and hardboiled eggs. Advised to count calories and to avoid refined carbohydrates. Patient encouraged to continue walking daily on the treadmill. Plan to administer MICC injection today, start Wegovy 1.7 mg weekly injections, and recommend probiotic. Will follow-up in November. Advised to call the office sooner if new symptoms arise. 09/29/2023 Body mass index [BMI] 33.0-33.9, adult (ICD-10 - Z68.33) 38-year-old female presents for weight management follow-up. #BMI 33: Patient is on Wegovy 1 mg weekly injections. She recently had an abdominoplasty 08/29 and states she is feeling well. Next appointment with Dr. Rincon is in October, she is hoping to be cleared to begin weight training again. She did lose 7 lbs from last visit. SECA scan reviewed, shows decrease in muscle mass and phase angle, as well as waist circumference. Patient educated on importance of improving protein intake to combat muscle mass loss, especially with lack of weight training. She was provided with high protein options, including broth, protein shakes, chicken, fish, and hardboiled eggs. Advised to count calories and to avoid refined carbohydrates. Patient encouraged to continue walking daily on the treadmill. Plan to administer MICC injection today, start Wegovy 1.7 mg weekly injections, and recommend probiotic. Will follow-up in November. Advised to call the office sooner if new symptoms arise. 11/11/2023 Other obesity due to excess calories (ICD-10 - E66.09) Patient with his tory of chronic fatigue history of heavy great bleeding and iron deficiency after after partial hysterectomy at this time I would like the patient to have the symptoms have persisted. at this time I would like the patient to complete fasting blood work. I would like to start treatment for migraine I would suggest possibly probiotic and liquid iron along with vitamin D and K for chronic fatigue Will see the patient back for 4 to 6 weeks and include weight management. 12/10/2023 Obesity, Class I, BMI 30-34.9 (ICD-10 - E66.9) Pt seen and examined. SECA scan results reviewed and discussed w/ pt; she has lost approximately 11 lbs since her previous appt in September, majority of which is fat mass; her muscle mass loss is ~1 lb; recommended pt increase her strength training frequency as well as her protein intake; she should take in about 80 g of protein daily to ensure minimal muscle mass loss. Encouraged pt to increase her water intake as well, as her hydration status remained low during today's visit; pt acknowledged that this needed to increase and has purchased a water bottle to carry with her during the day to increase fluid intake. Emphasized the importance of maintaining a healthy diet; advised her to continue to avoid refined foods and sugars and minimize excessive snacking. Pt remains on the right track and has made great progress; encouraged her to focus on increasing muscle mass while continuing to lose fat mass, thereby reducing CVD risk in the future. Reviewed and discussed lab results w/ pt; she is mildly anemic but denies heavy menses; pt states she had a partial hysterectomy previously. Pt will receive a MICC injection today to address her energy levels. Offered liquid iron as additional supplementation to help w/ her anemia. All questions answered to pt satisfaction. 02/04/2024 Obesity (BMI 30-39.9) (ICD-10 - E66.9) # weight managem ent follow up: Continue Wegovy 2.4mg SC weekly. Has had good progress with weight loss. Lost 11lbs since last visit and over 40lbs since starting medical weight loss 09/2022. Is now in the overweight category with BMI of 29.62, weight 178lbs. Educated on the importance of creating sustainable weight loss habits that will keep the weight off including balanced diet and daily exercise. Encouraged to continue exercising with personal development coach 3 times a week to maintain muscle mass and continue to lose fat mass. Encouraged to avoid processed foot, fast food, high calorie dense foods, and sweats. Protein goal of 80g daily with meat sources and protein shakes if needed. 02/04/2024 Body mass index [BMI] 29.0-29.9, adult (ICD-10 - Z68.29) # weight managem ent follow up: Continue Wegovy 2.4mg SC weekly. Has had good progress with weight loss. Lost 11lbs since last visit and over 40lbs since starting medical weight loss 09/2022. Is now in the overweight category with BMI of 29.62, weight 178lbs. Educated on the importance of creating sustainable weight loss habits that will keep the weight off including balanced diet and daily exercise. Encouraged to continue exercising with personal development coach 3 times a week to maintain muscle mass and continue to lose fat mass. Encouraged to avoid processed foot, fast food, high calorie dense foods, and sweats. Protein goal of 80g daily with meat sources and protein shakes if needed. 04/13/2024 Obesity (BMI 30-39.9) (ICD-10 - E66.9) # weight management follow up: Continue Wegovy 2.4mg SC weekly. Has had good progress with weight loss. Lost 10 lbs since last visit and 53lbs since starting medical weight loss 09/2022. Is now in the overweight category with BMI of 29.1, weight 168lbs. Discussed results of SECA scan, which indicate that she is losing both muscle and fat. She mentions having trouble remembering to eat throughout her busy workday. She understands that she will have more energy when she is able to pack more nutrition in throughout the day. She will try to remember her to drink her protein shake at work. She was also advised to incorporate good carbohydrate sources of energy like whole grain bread, oatmeal, fruit, yogurt, and nuts. To address the lost muscle mass, she understands that she can do exercises like planks and push ups at home when she does not have time to go to the gym. She was also encouraged to purchase weareable weights that will assist her in building muscle even while walking. F/u 05/18/24 Total time spent was 30 minutes with greater than 50% on care coordination 05/11/2024 Acute bronchitis, unspecified (ICD-10 - J20.9) #Acute bronchitis. Given the patient has had [...] Dictation was accomplished with the use of [email or web address] voice recognition software, prone to medical misidentifications and grammatical errors. This is unintentional and the practitioner does try to identify and correct these, but some could still be present. Please do not hesitate to contact practitioner for clarification. All questions answered to patients satisfaction. Patient verbalized understanding of diagnosis and treatments explained. To call sooner prior to next visit it any questions/concerns arise. 05/11/2024 Cough, unspecified (ICD-10 - R05.9) #Acute bronchitis. Given the patient has had [...] Dictation was accomplished with the use of [email or web address] voice recognition software, prone to medical misidentifications and grammatical errors. This is unintentional and the practitioner does try to identify and correct these, but some could still be present. Please do not hesitate to contact practitioner for clarification. All questions answered to patients satisfaction. Patient verbalized understanding of diagnosis and treatments explained. To call sooner prior to next visit it any questions/concerns arise. 05/18/2024 Overweight (ICD-10 - E66.3) Patient is [...] by the name of Martina Jurado in [facility]. Given contact information. Will continue to [...] Dictation was accomplished with the use of [email or web address] voice recognition software, which is prone to [...] by the name of Martina Jurado in [facility]. Given contact information. Will continue to [...] Dictation was accomplished with the use of [email or web address] voice recognition software, which is prone to medical misidentifications and grammatical errors. This are unintentional and the practitioner does try to identify and correct these, but some could still be present. Please do not hesitate to contact practitioner for clarification. 11/11/2023 Intractable migraine with aura without status migrainosus (ICD-10 - G43.119) Patient with his tory of chronic fatigue history of heavy great bleeding and iron deficiency after after partial hysterectomy at this time I would like the patient to have the symptoms have persisted. at this time I would like the patient to complete fasting blood work. I would like to start treatment for migraine I would suggest possibly probiotic and liquid iron along with vitamin D and K for chronic fatigue Will see the patient back for 4 to 6 weeks and include weight management. 12/10/2023 Anemia, unspecified type (ICD-10 - D64.9) Pt seen and examined. SECA scan results reviewed and discussed w/ pt; she has lost approximately 11 lbs since her previous appt in September, majority of which is fat mass; her muscle mass loss is ~1 lb; recommended pt increase her strength training frequency as well as her protein intake; she should take in about 80 g of protein daily to ensure minimal muscle mass loss. Encouraged pt to increase her water intake as well, as her hydration status remained low during today's visit; pt acknowledged that this needed to increase and has purchased a water bottle to carry with her during the day to increase fluid intake. Emphasized the importance of maintaining a healthy diet; advised her to continue to avoid refined foods and sugars and minimize excessive snacking. Pt remains on the right track and has made great progress; encouraged her to focus on increasing muscle mass while continuing to lose fat mass, thereby reducing CVD risk in the future. Reviewed and discussed lab results w/ pt; she is mildly anemic but denies heavy menses; pt states she had a partial hysterectomy previously. Pt will receive a MICC injection today to address her energy levels. Offered liquid iron as additional supplementation to help w/ her anemia. All questions answered to pt satisfaction. 06/16/2024 Overweight (ICD-10 - E66.3) Patient is [...] Dictation was accomplished with the use of [email or web address] voice recognition software, which is prone to medical misidentifications and grammatical errors. This are unintentional and the practitioner does try to identify and correct these, but some could still be present. Please do not hesitate to contact practitioner for clarification. 06/16/2024 BMI 26.0-26.9,adult (ICD-10 - Z68.26) Patient is [...] Dictation was accomplished with the use of [employer] voice recognition software, which is prone to medical misidentifications and grammatical errors. This are unintentional and the practitioner does try to identify and correct these, but some could still be present. Please do not hesitate to contact practitioner for clarification. 07/15/2024 Overweight (ICD-10 - E66.3) Patient is [...] Dictation was accomplished with the use of [employer] voice recognition software, which is prone to medical misidentifications and grammatical errors. This are unintentional and the practitioner does try to identify and correct these, but some could still be present. Please do not hesitate to contact practitioner for clarification. 07/15/2024 BMI 26.0-26.9,adult (ICD-10 - Z68.26) Patient is [...] Dictation was accomplished with the use of [employer] voice recognition software, which is prone to [...] Dictation was accomplished with the use of [employer] voice recognition software, which is prone to [...] Dictation was accomplished with the use of [employer] voice recognition software, which is prone to medical misidentifications and grammatical errors. This are unintentional and the practitioner does try to identify and correct these, but some could still be present. Please do not hesitate to contact practitioner for clarification. 12/10/2023 Body mass index [BMI] 31.0-31.9, adult (ICD-10 - Z68.31) Pt seen and examined. SECA scan results reviewed and discussed w/ pt; she has lost approximately 11 lbs since her previous appt in September, majority of which is fat mass; her muscle mass loss is ~1 lb; recommended pt increase her strength training frequency as well as her protein intake; she should take in about 80 g of protein daily to ensure minimal muscle mass loss. Encouraged pt to increase her water intake as well, as her hydration status remained low during today's visit; pt acknowledged that this needed to increase and has purchased a water bottle to carry with her during the day to increase fluid intake. Emphasized the importance of maintaining a healthy diet; advised her to continue to avoid refined foods and sugars and minimize excessive snacking. Pt remains on the right track and has made great progress; encouraged her to focus on increasing muscle mass while continuing to lose fat mass, thereby reducing CVD risk in the future. Reviewed and discussed lab results w/ pt; she is mildly anemic but denies heavy menses; pt states she had a partial hysterectomy previously. Pt will receive a MICC injection today to address her energy levels. Offered liquid iron as additional supplementation to help w/ her anemia. All questions answered to pt satisfaction. 05/18/2024 Nutritional counseling (ICD-10 - Z71.3) Patient [...] by the name of Martina Jurado in [facility]. Given contact information. Will continue to [...] Dictation was accomplished with the use of [employer] voice recognition software, which is prone to medical misidentifications and grammatical errors. This are unintentional and the practitioner does try to identify and correct these, but some could still be present. Please do not hesitate to contact practitioner for clarification. 04/13/2024 Body mass index [BMI] 29.0-29.9, adult (ICD-10 - Z68.29) # weight management follow up: Continue Wegovy 2.4mg SC weekly. Has had good progress with weight loss. Lost 10 lbs since last visit and 53lbs since starting medical weight loss 09/2022. Is now in the overweight category with BMI of 29.1, weight 168lbs. Discussed results of SECA scan, which indicate that she is losing both muscle and fat. She mentions having trouble remembering to eat throughout her busy workday. She understands that she will have more energy when she is able to pack more nutrition in throughout the day. She will try to remember her to drink her protein shake at work. She was also advised to incorporate good carbohydrate sources of energy like whole grain bread, oatmeal, fruit, yogurt, and nuts. To address the lost muscle mass, she understands that she can do exercises like planks and push ups at home when she does not have time to go to the gym. She was also encouraged to purchase weareable weights that will assist her in building muscle even while walking. F/u 05/18/24 Total time spent was 30 minutes with greater than 50% on care coordination 11/11/2023 Body mass index [BMI] 31.0-31.9, adult (ICD-10 - Z68.31) Patient with his tory of chronic fatigue history of heavy great bleeding and iron deficiency after after partial hysterectomy at this time I would like the patient to have the symptoms have persisted. at this time I would like the patient to complete fasting blood work. I would like to start treatment for migraine I would suggest possibly probiotic and liquid iron along with vitamin D and K for chronic fatigue Will see the patient back for 4 to 6 weeks and include weight management. 05/18/2024 Impaired concentration (ICD-10 - R41.840) Patient [...] by the name of Martina Jurado in [facility]. Given contact information. Will continue to [...] Dictation was accomplished with the use of [email or web address] voice recognition software, which is prone to [...] Dictation was accomplished with the use of [email or web address] voice recognition software, which is prone to medical misidentifications and grammatical errors. This are unintentional and the practitioner does try to identify and correct these, but some could still be present. Please do not hesitate to contact practitioner for clarification. PLAN OF TREATMENT Pending Test Test Name Order Date EKG 10/08/2022 LIPID PANEL, STANDARD 11/11/2023 COMPREHENSIVE METABOLIC PANEL 11/11/2023 CBC (INCLUDES DIFF/PLT) 11/11/2023 URINALYSIS, COMPLETE 11/11/2023 Next Appt Details Provider Name:ROSANA JAVIER , 08/12/2024 08:00:00 AM, [address] [facility], [facility] [address], [place], [address], Insurance Providers Payer Name Payer Address Payer Phone Subscriber Number Group Number Insured Name Patient Relationship to Insured Coverage Start Date Coverage End Date [facility] [address] [place] [address] [id number] Daphney Ng Self - patient is the insured MEDICATIONS ADMINISTERED Medication Instructions Date of Administration Dosage Notes MICC B12 INJECTION 01/24/2023 lot# [id number] MICC B12 INJECTION 04/17/2023 1 mL lot # [id number] MICC B12 INJECTION 05/01/2023 MICC B12 INJECTION 05/12/2023 [id number] MICC B12 INJECTION 09/29/2023 1.0 mL MICC B12 INJECTION 11/01/2023 1 mg [id number] MICC B12 INJECTION 12/10/2023 1.0 mL MICC B12 INJECTION 12/26/2023 1.0 mL MICC B12 INJECTION 01/02/2024 MICC B12 INJECTION 01/13/2024 1 mL Semaglutide 05/12/2023 [id number] 0.25 Semaglutide 05/20/2023 0.25 mg LRQ SQ Semaglutide 05/27/2023 0.25 mg LLQ SQ Semaglutide 06/04/2023 lot# [id number] 0.25mg Semaglutide 06/10/2023 0.5 Semaglutide 06/18/2023 0.5 mg LRQ SQ Semaglutide 06/28/2023 0.5 mg lot# [id number] 0.5mg vitamin b12 10/20/2023 1 mL MEDICAL (GENERAL) HISTORY Medical History History ICD Code Depression, unspecified F32.A Obesity (BMI 30-39.9) E66.9 Surgical History Surgery Date(Month/Year) gall bladder removal partial hysterectomy 2015 gastric sleeve 09/01/20 abdominoplasty Aug 2023
--- OUTSIDE RECORDS SUMMARY | 2024-07-20 09:20 | XMS_ITS ---
Author Name [facility] Organization Unknown History of Medication Use Medication Directions Dispensed Refills Start Date End Date Stat Wegovy 2.4 MG/0.75ML Solution Auto-injector 05/12/2024 07/13/9999 active SUMAtriptan (IMITREX) 100 MG tablet 01/07/2024 active ondansetron (ZOFRAN-ODT) 4 MG disintegrating tablet 1 tablet on the tongue and allow to dissolve Orally twice daily for 30 days 10/22/2023 active Semaglutide-Weight Management (Wegovy) 1.7 MG/0.75ML Solution Auto-injector inject 1.7mg Subcutaneous once weekly for 30 days 10/22/2023 active No known medications No known medications 11/09/2022 active cephalexin (KEFLEX) 500 MG capsule Take 2 capsules (1,000 mg total) by mouth 2 (two) times a day. 09/02/2023 active diazepam (VALIUM) 5 MG tablet Take 1 tablet (5 mg total) by mouth 4 times daily (every 6 hours) as needed for anxiety. 09/02/2023 active fluconazole (diFLUcan) 150 MG tablet Take 1 tablet (150 mg total) by mouth once. Please take 1 tomorrow and the second one 3 days later 09/02/2023 active Wegovy 1 MG/0.5ML Solution Auto-injector 08/01/2023 active oxyCODONE (ROXICODONE) 5 MG immediate release tablet Take 1 tablet (5 mg total) by mouth 4 times daily (every 6 hours) as needed for moderate pain or severe pain. Max Daily Amount: 20 mg 09/02/2023 aborted Problems Problem Status Onset Date Problem Type Date of Resoluti on Source [facility]ody[facility]
== END 2024-07-20 09:39 | disposition home or self-care (01) ==
PROVIDERS: PCP Physician Assistant; Visit Provider Physician Assistant Surgical
DX: L98.7 Excessive and redundant skin and subcutaneous tissue (principal); E66.3 Overweight; Z68.26 Body mass index [BMI] 26.0-26.9, adult; Z98.84 Bariatric surgery status
CPT/HCPCS: 99214